=== PATIENT | female | born 1985 | race Caucasian/White ===

== ENCOUNTER → 2020-10-09 14:20 | Outpatient (BNVA) | payer OTHER, SELFPAY | PROVIDERS: PCP Internal Medicine; Referring Provider Internal Medicine; Visit Provider Nurse Practitioner | DX: Z76.89 Persons encountering health services in other specified circumstances (principal) ==

== ENCOUNTER 2021-08-26 11:02 | Outpatient (REF) | payer OTHER, SELFPAY ==
[2021-08-26 13:21] LABS: Appearance Urine CLEAR; Color Urine YELLOW; Glucose Urine UA NEG (NEG); Leukocyte Esterase Urine NEG (NEG); Nitrite Urine NEG (NEG); Specific Gravity - Urine >= 1.030 (1.005-1.025); UACC Culture Trigger NO; Urine Blood TRACE (NEG); Urine Ketones NEG (NEG); Urine Protein NEG (NEG-TRACE)
[2021-08-26 14:36] LABS: Bacteria Urine 1+ /LPF; RBC Urine 0-2 /HPF (0); Squamous Epithelial Cell Urine 2+ /LPF; WBC Urine 0-2 /HPF (0-4)
== END 2021-08-26 11:03 | disposition home or self-care (01) ==
LOC: HO.LAB 11:02
PROVIDERS: PCP Internal Medicine; Visit Provider Internal Medicine
DX: R35.0 Frequency of micturition (principal)
CPT/HCPCS: 81001; 81003

== ENCOUNTER 2021-10-08 19:08 | Outpatient (REF) | payer OTHER, SELFPAY ==
--- NOTE | ~2021-10-08 | MR_ITS ---
MR BRAIN WITHOUT AND WITH CONTRAST CLINICAL INFORMATION: Left hemifacial spasm. COMPARISON: Brain MRI 09/01/2020. Cervical spine MRI 01/09/2020. TECHNIQUE: Multiplanar, multisequence MRI of the brain was obtained before and after the intravenous administration of 6.5 mL Gadavist. FINDINGS: There is no pathologic intracranial enhancement. There is no hydrocephalus, extra-axial surface collection, or herniation. Slightly progressive extensive T2 signal changes throughout the supratentorial white matter inclusive of the anterior temporal pole white matter and external capsules that remains suggestive of CADASIL. Clinical correlation advised. The major flow voids at the skull base are preserved. There is no acute infarct on diffusion-weighted imaging. There is no intracranial hemorrhage on the gradient recalled echo acquisition. The cerebellar tonsils are normally positioned. The craniocervical junction is normal. Osseous marrow signal intensity is homogenous. The visualized soft tissues are unremarkable. Partially imaged disc herniations at C4-C5 and C5-C6 result in similar severe left-sided central canal stenosis and mass effect on the cervical spinal cord when compared to the 01/09/2020 cervical spine MRI. Cord signal changes at both of these levels are better demonstrated on the prior cervical spine MRI. MR/MR head/brain wo/w con IMPRESSION: - Given the history of hemifacial spasm, the patient could return for axial FIESTA imaging in order to ensure that there is no vascular loop compression of the facial nerves. There are no enhancing lesions intracranially. - Slightly progressive extensive T2 signal changes throughout the supratentorial white matter inclusive of the anterior temporal pole white matter and external capsules that remains suggestive of CADASIL. Clinical correlation advised. - Partially imaged disc herniations at C4-C5 and C5-C6 result in similar severe left-sided central canal stenosis and mass effect on the cervical spinal cord when compared to the 01/09/2020 cervical spine MRI. Cord signal changes at both of these levels are better demonstrated on the prior cervical spine MRI.
== END 2021-10-08 19:09 | disposition home or self-care (01) ==
LOC: HO.MRI 19:08
PROVIDERS: PCP Internal Medicine; Visit Provider Psychiatry & Neurology Neurology
DX: G35 Multiple sclerosis (principal)
CPT/HCPCS: 70553; A9585

== ENCOUNTER 2021-10-19 03:47 | Emergency (ER) | payer OTHER, SELFPAY ==
--- NOTE | ~2021-10-19 | XR_ITS ---
EXAMINATION: XR ELBOW, LEFT CLINICAL INFORMATION: Pain on flexion at left elbow COMPARISON: None TECHNIQUE: AP, lateral, and oblique views of the left elbow. FINDINGS: Osseous alignment is anatomic. No acute fracture is seen. Spurring is noted at the coronoid process of the ulna. No significant effusion. XR/XR elbow LT min 3V IMPRESSION: No acute findings identified.
[2021-10-19 04:04] VITALS: BP 143/95; PULSE 105; RESP 20; TEMP 37; O2SAT 99; BMI 25.0
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
[2021-10-19 04:59] VITALS: BP 126/77; PULSE 94; RESP 16; O2SAT 99
[2021-10-19] MEDS: Ibuprofen 400 MG TABLET PO (05:01)
[2021-10-19] MEDS: Acetaminophen 325 MG TABLET 975 MG PO (05:02)
== END 2021-10-19 06:03 | disposition home or self-care (01) ==
PROVIDERS: Emergency Provider Student in an Organized Health Care Education/Training Program; PCP Internal Medicine
DX: M25.522 Pain in left elbow (principal); Z72.89 Other problems related to lifestyle; Z63.0 Problems in relationship with spouse or partner
CPT/HCPCS: 73080; 99283; 99284

== ENCOUNTER 2021-10-22 09:43 | Outpatient (REF) | payer OTHER, SELFPAY ==
[2021-10-22 10:52] LABS: Hematocrit 38.6 % (37.0-47.0); Mean Corpuscular HGB Conc 33.7 g/dl (31.0-35.0); Mean Corpuscular Hemoglobin 29.8 pg (27.0-33.0); Mean Corpuscular Volume 88.5 fL (80.0-98.0); Mean Platelet Volume 9.4 fL (9.4-12.3); Platelet Count 270 X10*3/uL (160-400); Red Blood Count 4.36 X10*6/uL (4.20-5.50); Red Cell Distribution Width 12.6 % (11.0-16.0); White Blood Count 6.2 X10*3/uL (4.8-10.8)
[2021-10-22 11:41] LABS: HCG Quantitative < 2 mIU/mL; TSH reflex Free T4 1.18 uIU/mL (0.32-4.0)
[2021-10-22 11:42] LABS: HBsAGNum1 0.22 S/CO (0.00-0.99); HIV AB/AG Nonreactive (Nonreactive); HIV Num 1 0.07 S/CO (0.00-0.99); Hepatitis B Surface Antigen Negative (Negative); ~HepC Num1 1.94 S/CO (0.00-0.79); ~Hepatitis C Antibody Reactive (Nonreactive)
[2021-10-22 13:28] LABS: CT PCR NOT DETECTED (Not Detect.); NG PCR NOT DETECTED (Not Detect.)
[2021-10-23 08:12] LABS: Syphilis Screen Nonreactive (Nonreactive)
[2021-10-23 11:17] LABS: BV Int Neg Control Negative (Negative); BV Int Pos Control Positive (Positive)
== END 2021-10-22 09:44 | disposition home or self-care (01) ==
LOC: HO.LAB 09:43
PROVIDERS: PCP Internal Medicine; Visit Provider Obstetrics & Gynecology
DX: Z30.432 Encounter for removal of intrauterine contraceptive device (principal); T83.32XA Displacement of intrauterine contraceptive device, initial encounter; N93.9 Abnormal uterine and vaginal bleeding, unspecified; N76.0 Acute vaginitis
CPT/HCPCS: 36415; 58301; 84443; 84702; 85027; 86780; 86803; 87340; 87389; 87480; 87491; 87510; 87591; 87660; 99202

== ENCOUNTER 2021-11-26 10:51 | Outpatient (REF) | payer OTHER, SELFPAY ==
--- NOTE | ~2021-11-26 | US_ITS ---
EXAMINATION: US PELVIS CLINICAL INFORMATION: N93.9 - Abnormal uterine and vaginal bleeding, unspecified. Age 36. LMP one week ago. COMPARISON: Report CT abdomen and pelvis 09/30/2010 TECHNIQUE: Ultrasound of the pelvis is performed using both transabdominal and transvaginal transducers along with Doppler. Transvaginal imaging is performed due to inadequate visualization transabdominally. FINDINGS: Uterus: The uterus is anteverted and measures 8.3 x 5.2 x 6.2 cm. Volume 140 mL. The double wall endometrial thickness is 8 mm. The uterus is smooth in contour and has normal myometrial echogenicity. No visible fibroid. Adnexa: Both ovaries are visualized. There is normal color flow to the adnexa. There is no ovarian torsion. There is no pelvic ascites or fluid collection. Right ovary measures 2.9 x 1.5 x 2.4 cm. Left ovary measures 3.6 x 2.3 x 2.8 cm. There is subtle left intraovarian corpus luteum measuring 1.6 x 1.2 x 1.2 cm. US/US pelvic and transvaginal IMPRESSION: 1. Normal double wall endometrial thickness is 8 mm. No visible fibroid. 2. No adnexal mass or pelvic ascites.
== END 2021-11-26 10:52 | disposition home or self-care (01) ==
LOC: HO.US 10:51
PROVIDERS: PCP Internal Medicine; Visit Provider Obstetrics & Gynecology
DX: Z11.3 Encounter for screening for infections with a predominantly sexual mode of transmission (principal); N93.9 Abnormal uterine and vaginal bleeding, unspecified
CPT/HCPCS: 76830; 76856

== ENCOUNTER → 2021-12-10 09:43 | Outpatient (BNVA) | payer OTHER, SELFPAY | PROVIDERS: PCP Internal Medicine; Visit Provider Obstetrics & Gynecology ==

== ENCOUNTER 2022-02-12 08:41 | Outpatient (REF) | payer OTHER, SELFPAY ==
[2022-02-12 16:23] LABS: CT PCR NOT DETECTED (Not Detect.); NG PCR NOT DETECTED (Not Detect.)
[2022-02-15 09:57] LABS: HPV mRNA E6/E7 Not Detected (Not Detected)
== END 2022-02-12 08:42 | disposition home or self-care (01) ==
LOC: HO.LAB 08:41
PROVIDERS: PCP Internal Medicine; Visit Provider Obstetrics & Gynecology
DX: Z01.419 Encounter for gynecological examination (general) (routine) without abnormal findings (principal); N93.9 Abnormal uterine and vaginal bleeding, unspecified; R76.8 Other specified abnormal immunological findings in serum; Z11.3 Encounter for screening for infections with a predominantly sexual mode of transmission; Z87.891 Personal history of nicotine dependence; Z32.02 Encounter for pregnancy test, result negative
CPT/HCPCS: 58100; 81025; 87491; 87591; 87624; 88142; 88305

== ENCOUNTER → 2022-02-26 15:23 | Outpatient (BNVA) | payer OTHER, SELFPAY | PROVIDERS: Visit Provider Obstetrics & Gynecology | DX: Z13.89 Encounter for screening for other disorder (principal) ==

== ENCOUNTER 2022-05-13 17:11 | Outpatient (REF) | payer OTHER, SELFPAY ==
[2022-05-13 17:45] LABS: HCG Quantitative 634 mIU/mL
== END 2022-05-13 17:12 | disposition home or self-care (01) ==
LOC: HO.LAB 17:11
PROVIDERS: PCP Internal Medicine; Visit Provider Internal Medicine
DX: N91.2 Amenorrhea, unspecified (principal)
CPT/HCPCS: 36415; 84702

== ENCOUNTER 2022-06-01 14:22 | Observation (INO) | payer OTHER, SELFPAY ==
--- NOTE | ~2022-06-01 | CT_ITS ---
EXAMINATION: CT ABDOMEN AND PELVIS WITH CONTRAST CLINICAL INFORMATION: Shortness of breath, prior DVT, abdominal pain COMPARISON: Pelvic ultrasound 11/26/2021 CT abdomen pelvis 09/30/2010 TECHNIQUE: Multidetector volumetric images were obtained from the superior aspect of the liver through the pubic symphysis following administration 85 mL of Omnipaque 350 intravenous contrast. Sagittal and coronal reformatted images were obtained on the technologist's workstation. Oral contrast: No This CT examination was performed using dose optimization techniques as appropriate, variously including the following: *Automated exposure control *Adjustment of mA and/or kV according to patient size (this includes techniques or standardized protocols for targeted exams where dose is matched to indication/reason for exam; i.e. extremities or head) *Use of iterative reconstruction technique DLP: 239 mGy-cm FINDINGS: LUNG BASES: The visualized lung bases are unremarkable. LIVER, GALLBLADDER, AND BILIARY TREE: The liver is normal in size, shape, and attenuation. No focal hepatic lesion or biliary ductal dilatation is present. The gallbladder is unremarkable with no evidence of radiopaque gallstones, gallbladder wall thickening, or obvious pericholecystic inflammatory changes. PANCREAS: Unremarkable. SPLEEN: Unremarkable. ADRENAL GLANDS: Unremarkable. KIDNEYS AND URETERS: The kidneys are normal in size, shape, and attenuation. No hydronephrosis, hydroureter, or calculi seen. No perinephric stranding. BLADDER: Unremarkable. GASTROINTESTINAL TRACT: A moderate stool burden is present in the colon. The small and large bowel are otherwise unremarkable. The appendix is unremarkable. ABDOMINAL WALL: No significant hernia is appreciated. Tiny periumbilical hernia seen containing only fat. LYMPH NODES: No retroperitoneal lymphadenopathy. VASCULAR: Unremarkable. PELVIC VISCERA: An anteverted uterus is present. An abnormal adnexal mass is not seen. There is some inhomogeneity at the fundus which could represent a uterine fibroid none were seen at pelvic ultrasound in November (18:59). Small amount of free fluid is present in the cul-de-sac OSSEOUS STRUCTURES: Unremarkable. CT/CT abdomen pelvis w con IMPRESSION: Cause for abdominal pain has not been found. Incidental findings as described above Fleischner guidelines were followed.
--- NOTE | ~2022-06-01 | US_ITS ---
EXAMINATION: US VENOUS ULTRASOUND WITH DOPPLER LOWER EXTREMITY, BILATERAL CLINICAL INFORMATION: Left leg pain and tightness COMPARISON: None TECHNIQUE: Ultrasound of the deep veins is performed from the hip to the calf with compression sonography and color and pulse Doppler assessment. Spectral analysis with color-flow imaging is performed. FINDINGS: Note is made of prominent bilateral inguinal nodes but no suspicious cystic masses are seen. RIGHT: There is normal venous compression and respiratory variation and augmented flow. The visualized common femoral vein, superficial femoral vein, profunda femoral vein, popliteal vein, and the trifurcation region shows no evidence of deep venous thrombosis. There is no significant popliteal fossa cyst. LEFT: There is normal venous compression and respiratory variation and augmented flow. The visualized common femoral vein, superficial femoral vein, profunda femoral vein, popliteal vein, and the trifurcation region shows no evidence of deep venous thrombosis. There is no significant popliteal fossa cyst. If the patient's symptoms persist, followup ultrasound in 5 days 7 days might be of value to exclude proximal propagation from a non-visualized calf vein. US/US venous duplex LE BI IMPRESSION: No DVT demonstrated in the right and left lower extremity.
--- NOTE | ~2022-06-01 | US_ITS ---
EXAMINATION: US ABDOMEN LIMITED CLINICAL INFORMATION: Severe right upper quadrant pain. COMPARISON: CT scan abdomen and pelvis performed earlier this evening TECHNIQUE: Real-time imaging of the right upper quadrant abdominal viscera. FINDINGS: PANCREAS: Obscured by bowel gas and cannot be evaluated. The pancreas was unremarkable on the CT from earlier today LIVER: The liver is normal in size. The liver contour is normal. Parenchymal echogenicity is normal. No focal hepatic lesion. There is no intrahepatic biliary duct dilatation seen. GALLBLADDER: The gallbladder is filled with stones with a thickened 7 mm wall and some trace pericholecystic fluid. There is a positive Ac's sign present COMMON BILE DUCT: Normal in caliber measuring 0.6 cm in diameter. RIGHT KIDNEY: No hydronephrosis. No renal calculi or focal parenchymal lesions. The kidney measures 10.4 cm in maximum dimension. FREE FLUID: None. US/US abdomen limited IMPRESSION: Findings worrisome for cholecystitis with gallstones, thick walled gallbladder with some trace pericholecystic fluid and a positive Ac's sign.
--- NOTE | ~2022-06-01 | CT_ITS ---
EXAMINATION: CT ANGIOGRAM OF THE CHEST WITH AND WITHOUT CONTRAST (CT PULMONARY ANGIOGRAM FOR PE) CLINICAL INFORMATION: Reason for Exam cp, SOB, prior DVT COMPARISON: None TECHNIQUE: Prior to contrast administration, noncontrast localization images were obtained. Subsequently, multidetector volumetric imaging was performed from the thoracic inlet to below the diaphragms following the administration of 80 mL Omnipaque 350 intravenous contrast. No contrast reaction reported Sagittal, coronal, and MIP oblique sagittal reformatted images were obtained on the CT workstation, uploaded to PACS, and reviewed. This CT examination was performed using dose optimization techniques as appropriate, variously including the following: *Automated exposure control *Adjustment of mA and/or kV according to patient size (this includes techniques or standardized protocols for targeted exams where dose is matched to indication/reason for exam; i.e. extremities or head) *Use of iterative reconstruction technique Total exam dose-length product 239 mGy-cm FINDINGS: QUALITY OF STUDY/CONTRAST BOLUS: Satisfactory. PULMONARY ARTERIES: No central or segmental pulmonary emboli. THORACIC AORTA: No aneurysm or dissection. LUNG: No focal consolidation, nodules or masses. PLEURA: No pleural effusion or pneumothorax. MEDIASTINUM: Normal heart size. No pericardial effusion. No hilar or mediastinal lymphadenopathy. No evidence of septal bowing or right heart strain. CHEST WALL/AXILLA: No axillary or internal mammary lymphadenopathy. OSSEOUS STRUCTURES: No acute or suspicious osseous abnormality. UPPER ABDOMEN: See report of abdominal and pelvic CT same day No reflux of contrast into the hepatic veins to suggest elevated right heart pressures. CT/CT angio chest PE protocol IMPRESSION: No evidence of pulmonary emboli VTE: negative
[2022-06-01 14:29] VITALS: BP 144/88; PULSE 84; RESP 20; TEMP 37.1; O2SAT 99; BMI 28.3
--- NOTE | 2022-06-01 14:35 | ECG_ITS ---
Test Reason : CHEST PAIN Blood Pressure : / mmHG Vent. Rate : 065 BPM Atrial Rate : 065 BPM P-R Int : 142 ms QRS Dur : 084 ms QT Int : 406 ms P-R-T Axes : 045 049 052 degrees QTc Int : 422 ms Normal sinus rhythm Normal ECG When compared with ECG of 05-MAY-2016 12:37, No significant change was found Referred By: Generic ED Physician Electronically Signed By:SATYA DAS
[2022-06-01 14:54] LABS: MANUAL DIFF FLAG NO
[2022-06-01 14:56] LABS: Basophils Percent Auto 0.4 % (0-2); Eosinophils Absolute Auto 0.1 X10*3/uL (0.0-0.4); Eosinophils Percent Auto 1.3 % (0-4); Hematocrit 40.8 % (37.0-47.0); Hemoglobin 13.7 g/dl (12.0-16.0); Imm Gran Abs Auto 0.02 X10*3/uL (0.00-0.03); Imm Gran Pct Auto 0.2 % (0.0-0.4); Lymphocytes Absolute Auto 2.9 X10*3/uL (1.2-4.9); Lymphocytes Percent Auto 27.8 % (20-40); Mean Corpuscular HGB Conc 33.6 g/dl (31.0-35.0); Mean Corpuscular Hemoglobin 30.6 pg (27.0-33.0); Mean Corpuscular Volume 91.1 fL (80.0-98.0); Mean Platelet Volume 9.4 fL (9.4-12.3); Monocytes Absolute Auto 0.7 X10*3/uL (0.1-1.2); Monocytes Percent Auto 6.4 % (2-11); Neutrophils Absolute Auto 6.7 x10*3/uL (2.0-8.3); Neutrophils Percent Auto 63.9 % (45-73); Platelet Count 319 X10*3/uL (160-400); Red Blood Count 4.48 X10*6/uL (4.20-5.50); Red Cell Distribution Width 12.4 % (11.0-16.0); White Blood Count 10.5 X10*3/uL (4.8-10.8)
[2022-06-01 15:21] LABS: Alanine Aminotransferase 19 U/L (0-31); Albumin Level 4.4 g/dL (3.5-5.0); Alkaline Phosphatase 45 U/L (39-117); Anion Gap 12 (12-20); Aspartate Amino Transferase 15 U/L (5-31); Bilirubin Direct 0.2 mg/dL (0.0-0.5); Bilirubin Total 0.4 mg/dL (0.0-1.0); Blood Urea Nitrogen 9 mg/dL (9-16); Calcium 9.1 mg/dL (8.4-10.2); Carbon Dioxide 22 mmol/L (22-29); Chloride 106 mmol/L (96-108); Creatinine Clr Calc Pharmacy 114.6; Estimated Glomerular Filt Rate > 60; Glucose Random 92 mg/dL (60-115); Lipase 4 U/L (8-78); Potassium 4.6 mmol/L (3.3-5.1); Sodium 135 mmol/L (135-145); Total Protein 7.3 g/dL (6.5-8.0)
--- NOTE | 2022-06-01 16:21 | ED_ITS ---
HPI - Chest Pain General Chief Complaint: Abdominal Pain Stated Complaint: back pain, chest pain after surgery Time Seen by Provider: 06/01/22 16:05 Source: patient Mode of arrival: ambulatory Limitations: no limitations History of Present Illness HPI narrative: Patient presents emergency department for evaluation of pain. She reports last night having mid thoracic back pain that is now radiating across her sides into the contents immediately beneath her ribs and up the middle of her chest. She appears in significant discomfort. She is crying, unable to sit still, holding her upper abdominal. She states that she underwent a D&C for ectopic 5 days ago at [facility]. Related Data Home Medications Medication Instructions Recorded Confirmed methadone 10 mg/5 mL oral solution 41 mg PO DAILY 09/04/20 12/07/20 Previous Rx's Medication Instructions Recorded ropinirole 0.5 mg tablet 0.5 mg PO BID #30 tabs 03/05/22 Allergies Allergy/AdvReac Type Severity Reaction Status Date / Time lorazepam [From ATIVAN] Allergy Intermediate hives, Verified 02/12/22 09:07 itchy quetiapine [From SEROQUEL] AdvReac Intermediate RESTLESS Verified 02/12/22 09:07 LEGS trazodone AdvReac Intermediate restless Verified 02/12/22 09:07 leg syndrome Review of Systems Review of Systems: Constitutional: No weight loss. No fever. No chills. No we akness. No fatigue. Eye: No swelling. No redness. ENT: No sore throat. No rhinorrhea. No nasal congestion. No difficulty swallowing. Skin: No rash. No itching. Cardiovascular: Positive chest pain. No palpitations. No pedal edema. Respiratory: Positive shortness of breath. No cough. No sputum production. Gastrointestinal: No anorexia. No nausea. No vomiting. No diarrhea. Positive abdominal pain. No blood in stool. Genitourinary: No burning micturition. No urinary frequency. No incontinence. Neurologic: No headache. No dizziness. No pre-syncope/ syncope. Musculoskeletal: No muscle pain. No back pain. No joint pain. No stiffness. Hematologic: No bleeding. No bruising. Endocrine: No polyuria. No polydipsia. Yes all other systems are reviewed and are negative PMFSH Past Medical History Attestation statement: The following information was validated with the patient. Source: old records reviewed Medical History Bipolar disorder Brain lesion Cervical nerve root impingement Insomnia Polysubstance abuse Tobacco abuse Surgical History Avascular necrosis of bone of left hip Family History Family History Father COPD (chronic obstructive pulmonary disease) Mother Asthma Multiple sclerosis Dementia Other Mental health disorder Substance use disorder Social History Social History Housing: Apartment Alcohol intake: former Patient Tobacco Use Status: Former Tobacco user Tobacco use type: Cigarette Years Smoked: stopped 11/2021 e-Cigarette/Vaping Use: Never Used Second Hand Smoke Exposure: No Substance Use Type: Marijuana Advance Directives: No Advance Directives Information Provided: Yes Current occupational status: employed Cognitive needs: No Hearing needs: No Vision needs: No Physical Exam Vital Signs: Vital Signs: Last Vital Signs Temp 98.7 F 06/01/22 14:29 Pulse 67 06/01/22 16:42 Resp 20 06/01/22 14:29 BP 144/88 H 06/01/22 14:29 Pulse Ox 99 06/01/22 16:42 O2 Del Method 06/01/22 16:42 BMI result Body Mass Index 28.3 Appearance: Alert.?Oriented to person, place and time. No acute distress.?Normal affect. Eyes: Pupils equal, round and reactive to light.? ENT: Pharynx normal.?? Neck: Normal inspection.? Neck supple.?? CVS: Heart sounds normal. Normal heart rate and rhythm.? Pulses normal.?? Respiratory: No respiratory distress.? Lung sounds clear to auscultation bilaterally?? Abdomen: Soft diffuse tenderness on palpation. Normoactive bowel sounds. Skin: Skin warm and dry.? Normal skin color.? Extremities: No lower extremity edema.? No calf ttp? Neuro: Moves all extremities spontaneously. Sensation intact bilaterally. No motor deficits. Ambulates with normal steady gait. Course Course Course Narrative: Patient is a 37-year-old female with history of CP, bipolar disorder, IBS with constipation, polysubstance abuse, the history of DVT, avascular necrosis of the left hip. She is a recently having underwent D and C for ectopic 5 days ago presenting to emergency department for evaluation of try and upper abdominal pain. She is minimally hypertensive otherwise vitals is stable, she appears in significant amount of pain, crying, unable to sit still, guarding her abdomen, minimally tolerant to light palpation. Given her reported history of DVT, and severity of pain will obtain CT angio of the chest to exclude pulmonary embolism, in addition to CT of the abdomen to evaluate for possible perforation after recent procedure or additional intra-abdominal pathology. Patient to receive IV fluids, Zofran IV, and morphine IV. Reevaluation(s) Reevaluation #1: CBC is unremarkable. CMP is unremarkable, lipase normal. CTA of the chest reveals no evidence of pulmonary embolism or acute findings. CT of the abdomen and pelvis without identifiable cause for pain, moderate stool burden within the colon is present. Patient continues to be in a significant amount of pain, trial of GI cocktail in obtain ultrasound of the right upper quadrant to evaluate for obstructive stone. Discussed this case with ED attending Dr. Robles, also evaluated the patient, and agrees with current plan of care. Time: 17:54 Reevaluation #2: Abdominal ultrasound did not with cholecystitis with gallstones, thickened gallbladder wall 7mm and trace pericholecystic fluid, positive Ac sign. Had minimal improvement from GI cocktail, trial Toradol at this time, and if no improvement with NSAID will trial Dilaudid Time: 19:32 Reevaluation #3: Consulted with Surgery economic research analyst Dr. Jain. who accepts patient for admission, requesting hCG, of note patient did just recently undergo D&C for ectopic , her hCG levels may continue to be present at this time. Discussed with patient plan of care and she is agreeable for admission. Time: 20:19 MDM - Chest Pain Medical Records Data Attestation: I reviewed the patient's medical records. Lab Data Attestation: I reviewed the patient's lab results. Result diagrams: 06/01/22 14:50 06/01/22 14:50 Labs: Lab Results 06/01/22 06/01/22 Range/Units 14:50 14:50 WBC 10.5 (4.8-10.8) X10*3/uL RBC 4.48 (4.20-5.50) X10*6/uL Hgb 13.7 (12.0-16.0) g/dl Hct 40.8 (37.0-47.0) % MCV 91.1 (80.0-98.0) fL MCH 30.6 (27.0-33.0) pg MCHC 33.6 (31.0-35.0) g/dl RDW 12.4 (11.0-16.0) % Plt Count 319 (160-400) X10*3/uL MPV 9.4 (9.4-12.3) fL Immature Gran % (Auto) 0.2 (0.0-0.4) % Neut % (Auto) 63.9 (45-73) % Lymph % (Auto) 27.8 (20-40) % Addison % (Auto) 6.4 (2-11) % Eos % (Auto) 1.3 (0-4) % Baso % (Auto) 0.4 (0-2) % Lymph # (Auto) 2.9 (1.2-4.9) X10*3/uL Addison # (Auto) 0.7 (0.1-1.2) X10*3/uL Eos # (Auto) 0.1 (0.0-0.4) X10*3/uL Baso # (Auto) 0.0 (0.0-0.2) X10*3/uL Abs Immat Gran (auto) 0.02 (0.00-0.03) X10*3/uL Absolute Neuts (auto) 6.7 (2.0-8.3) x10*3/uL Absolute Nucleated RBC 0.000 (0.0-0.012) X10*3/uL Nucleated RBC % (auto) 0.0 (0.0-0.2) /100WBC Sodium 135 (135-145) mmol/L Potassium 4.6 (3.3-5.1) mmol/L Chloride 106 (96-108) mmol/L Carbon Dioxide 22 (22-29) mmol/L Anion Gap 12 (12-20) BUN 9 (9-16) mg/dL Creatinine 0.69 (0.5-1.4) mg/dL Estim Creat Clear Calc 114.6 Estimated GFR > 60 Random Glucose 92 (60-115) mg/dL Calcium 9.1 (8.4-10.2) mg/dL Total Bilirubin 0.4 (0.0-1.0) mg/dL Direct Bilirubin 0.2 (0.0-0.5) mg/dL AST 15 (5-31) U/L ALT 19 (0-31) U/L Alkaline Phosphatase 45 (39-117) U/L Total Protein 7.3 (6.5-8.0) g/dL Albumin 4.4 (3.5-5.0) g/dL Lipase 4 L (8-78) U/L Ethyl Alcohol < 10 mg/dL Imaging Data CT scan - chest: Radiologist's impression: CT/CT angio chest PE protocol IMPRESSION: No evidence of pulmonary emboli CT scan - abdomen: Radiologist's impression: CT/CT abdomen pelvis w con IMPRESSION: Cause for abdominal pain has not been found. Incidental findings as described above? US - abdomen: Radiologist's impression: US/US abdomen limited IMPRESSION: Findings worrisome for cholecystitis with gallstones, thick walled gallbladder with some trace pericholecystic fluid and a positive Ac's sign. ECG Data ECG #1: Attestation: I personally reviewed and interpreted this ECG as follows: ECG interpretation date: 06/01/22 Prior ECG tracings: available for review Interpretation: Rate: 65 Rhythm:? Normal sinus rhythm Brokaw:? Normal Normal P waves.? Normal KAITY.?? Normal QRS complex.?? ST T wave :??No ST elevation, no ST depression, no T-wave inversion qTC: 422 prior studies:? April 2016 The study has been interpreted contemporaneously by me. Discharge Plan Discharge Clinical Impression: Cholecystitis with cholelithiasis, Biliary colic Patient Disposition: Admitted As Inpatient
[2022-06-01 16:42] VITALS: PULSE 67; O2SAT 99
[2022-06-01] MEDS: Morphine Sulfate 4 MG/ML CARTRIDGE IVPUSH (16:43)
[2022-06-01] MEDS: ondansetron HCL 4 MG/2 ML VIAL IVPUSH (16:43)
[2022-06-01] MEDS: 0.9 % Sodium Chloride 1,000 ML 999 ML IV (16:44)
[2022-06-01] MEDS: iohexoL 350 MG/ML 100 ML INFUS..BTL IV (17:14)
[2022-06-01] MEDS: Magnesium Hydrox/Alum Hydrox 30 ML ORAL.SUSP PO (18:26)
[2022-06-01] MEDS: Lidocaine HCl Viscous 2 % 15 ML SOLUTION MUCOUS MEM (18:26)
[2022-06-01] MEDS: Famotidine/PF 20 MG/2 ML VIAL IVPUSH (18:26)
[2022-06-01 19:23] LABS: Ethanol < 10 mg/dL
[2022-06-01] MEDS: Ketorolac Tromethamine 30 MG/ML VIAL IVPUSH (20:11)
--- NOTE | 2022-06-01 20:14 | P.HPGS_ITS ---
History of Present Illness History of Present Illness Date of Service: 06/02/22 Chief complaint: biliary colic, early cholecystitis Narrative: Lana Morocho is a 37 year old female with biliary colic pain & GB wall thickening on CT & U/S. Her pain is continuing & I was asked to admit for pain management & possible cholecystectomy. The pt notes a D/C was performed roughly a week ago. This morning her pain is progressing in the epigastrium and right upper quadrant. Review of Systems Review of Systems: Yes all other systems are reviewed and are negative Constitutional: Constitutional: Reports as per [facility] Past Medical History Medical History Bipolar disorder Brain lesion Cervical nerve root impingement Insomnia Polysubstance abuse Tobacco abuse Family History Family History Father COPD (chronic obstructive pulmonary disease) Mother Asthma Multiple sclerosis Dementia Other Mental health disorder Substance use disorder Surgical History Surgical History Avascular necrosis of bone of left hip Social History Social History Housing: Apartment Alcohol intake: former Patient Tobacco Use Status: Former Tobacco user Tobacco use type: Cigarette Years Smoked: stopped 11/2021 e-Cigarette/Vaping Use: Never Used Second Hand Smoke Exposure: No Substance Use Type: Marijuana Advance Directives: No Advance Directives Information Provided: Yes Current occupational status: employed Cognitive needs: No Hearing needs: No Vision needs: No Meds Allergies Allergy/AdvReac Type Severity Reaction Status Date / Time lorazepam [From ATIVAN] Allergy Intermediate hives, Verified 02/12/22 09:07 itchy quetiapine [From SEROQUEL] AdvReac Intermediate RESTLESS Verified 02/12/22 09:07 LEGS trazodone AdvReac Intermediate restless Verified 02/12/22 09:07 leg syndrome Active Medications: Current Medications Piperacillin Sod/Tazobactam (Sod 3.375 gm/ Sodium Chloride) 50 mls @ 100 mls/hr IV ONCE ONE Stop: 06/01/22 20:33 Home Medications Medication Instructions Recorded Confirmed Last Taken Type methadone 10 mg/5 mL oral solution 41 mg PO DAILY 09/04/20 12/07/20 Unknown History Physical Exam Vital Signs: Vital Signs: Last Vital Signs Temp 98.7 F 06/01/22 14:29 Pulse 67 06/01/22 16:42 Resp 20 06/01/22 14:29 BP 144/88 H 06/01/22 14:29 Pulse Ox 99 06/01/22 16:42 O2 Del Method 06/01/22 16:42 BMI result Body Mass Index 28.3 The patient is non-toxic & in good spirits NC/AT, PERRLA, EOMI Mood, affect & judgment all appear appropriate Sclera anicteric conjunctiva pink and moist Oropharynx is clear with no aphthous ulcers, Mallampati class 1, mucous membranes moist Neck is supple with no masses, adenopathy or bruits Thyroid is nontender and free of dominant masses Heart is regular, normal S1-S2 no rubs or murmurs Lungs are clear and equal anteriorly with no audible wheezing, rubs or dullness to percussion No CVA tenderness present Abdomen is overweight with no demonstrable hernias. There is moderate epigastric and right upper quadrant discomfort but no rebound, rigidity, guarding, bruits. Rectal exam is deferred Skin has good turgor and is free of rashes Extremities free of cyanosis clubbing edema Results Results Labs: Short CBC 06/01/22 Range/Units 14:50 WBC 10.5 (4.8-10.8) X10*3/uL Hgb 13.7 (12.0-16.0) g/dl Hct 40.8 (37.0-47.0) % Plt Count 319 (160-400) X10*3/uL BMP 06/01/22 14:50 Sodium 135 Potassium 4.6 Chloride 106 Carbon Dioxide 22 BUN 9 Creatinine 0.69 Calcium 9.1 Liver Function 06/01/22 Range/Units 14:50 Total Bilirubin 0.4 (0.0-1.0) mg/dL Direct Bilirubin 0.2 (0.0-0.5) mg/dL AST 15 (5-31) U/L ALT 19 (0-31) U/L Alkaline Phosphatase 45 (39-117) U/L Albumin 4.4 (3.5-5.0) g/dL Abdomen CT scan report/results: report reviewed and image reviewed CT scan - chest: report reviewed CT scan - pelvis: report reviewed and image reviewed Abdominal ultrasound report/results: report reviewed Additional studies: This morning's white blood cell count is increased to 16 K; repeat LFTs remain normal Assessment and Plan (1) Biliary colic: Status: Acute (2) Cholecystitis with cholelithiasis: Status: Acute (3) Multiple sclerosis: Status: Acute (4) Hepatitis C antibody positive in blood: Status: Acute (5) Bipolar disorder: Qualifiers: Active/Remission status: currently active Current bipolar episode type: mixed Current episode severity: moderate Qualified Code(s): F31.62 - Bipolar disorder, current episode mixed, moderate Status: Acute (6) Polysubstance abuse: Status: Acute Plan See orders NPO, Bowel rest, IVF Analgesics trend labs & exam Per my CT read, ? GB wall thickening. If no clinical improvement, will need OR. 06/02/22 0807 Patient has ongoing symptoms suggestive of acute calculous cholecystitis in the setting of an increase white blood cell count. Plan for surgery today. I explained the symptoms of biliary colic and recommended laparoscopic cholecystectomy. I reviewed the option of continued observation and 2nd opinion which was declined. I also reviewed the inherent risks to surgery which include, but are not limited to: Bleeding that could require another operation or blood transfusion, the need for open surgery, the unlikely but possible issue of bile leak that could require an ERCP, the risk of retained common duct stones that could require an ERCP, the risk of common bile duct injury which would require transfer to a larger institution for another operation. Patient seemed to understand her options, declined a volunteer services director or 2nd opinion and wants to proceed. ? Instructions regarding diet and activity reviewed and apparently understood. The patient is advised to avoid Rich fatty foods postoperatively to avoid GI distress/diarrhea and advised to not lift more than 20 lb for medical reasons to minimize the risk of hernia postoperatively. I recommended that she discuss these restrictions with her employer and that she is not disabled during this time frame but can perform light duty. The patient's questions seemed to be satisfactorily answered. Quality Stroke Does the patient have a stroke diagnosis?: No VTE Prior VTE?: No VTE Risk Level:: Medical - moderate - high VTE Device Contraindication: N/A - Device Ordered VTE Drug Contraindication: N/A - Med Ordered Procedures Date of Service Date of Service: 06/02/22
[2022-06-01] MEDS: Piperacillin Sodium/Tazobactam 3.375 GM in 0.9 % Sodium Chloride 50 ML IV (21:49)
--- NOTE | 2022-06-01 21:52 | PC.NURSE ---
This life underwriter spoke to Dr. Canas to inquire if blood cultures need to drawn prior to IV Zosyn administration-per MD blood cultures do not need to be drawn.
[2022-06-01 22:33] VITALS: BP 103/52; PULSE 68; RESP 16; TEMP 37; O2SAT 99
[2022-06-01 22:45] LABS: Appearance Urine CLEAR; Color Urine YELLOW; Glucose Urine UA NEG (NEG); Leukocyte Esterase Urine NEG (NEG); Nitrite Urine NEG (NEG); PH 5.5 (5.0-8.0); Specific Gravity - Urine 1.015 (1.005-1.025); UACC Culture Trigger NO; Urine Blood TRACE (NEG); Urine Ketones 40 MG/DL (NEG); Urine Protein NEG (NEG-TRACE)
[2022-06-01 23:00] LABS: COVID-19 Test Negative (Negative); IDNOW Serial# 08D9AD1C
[2022-06-01 23:04] LABS: Amphetamine Screen Urine Not Detected (Not Detect); Barbiturates, Urine Not Detected (Not Detect); Benzodiazepines Screen Urine Not Detected (Not Detect); Cannabinoid Screen Urine POSITIVE (Not Detect); Cocaine Screen Urine Not Detected (Not Detect); Fentanyl, urine Not Detected (Not Detect); Opiate Screen Urine POSITIVE (Not Detect); Phencyclidine Screen Urine Not Detected (Not Detect)
[2022-06-01 23:08] LABS: Bacteria Urine TRACE /LPF; Squamous Epithelial Cell Urine 3+ /LPF; WBC Urine 0 /HPF (0-4)
[2022-06-02] VITALS (17 sets, daily range): BP systolic 91–125; BP diastolic 40–75; PULSE 58–90; RESP 11–28; TEMP 36.4–37.9; O2SAT 98–100
[2022-06-02] MEDS: HYDROmorphone HCl 0.5 MG/0.5 ML SYRINGE IVPUSH ×4 (00:58→20:25)
[2022-06-02] MEDS: Ketorolac Tromethamine 15 MG/ML VIAL IVPUSH ×4 (03:19→22:34)
[2022-06-02 04:14] LABS: MANUAL DIFF FLAG NO
[2022-06-02 04:15] LABS: Basophils Absolute Auto 0.1 X10*3/uL (0.0-0.2); Basophils Percent Auto 0.3 % (0-2); Eosinophils Absolute Auto 0.1 X10*3/uL (0.0-0.4); Eosinophils Percent Auto 0.4 % (0-4); Hematocrit 35.1 % (37.0-47.0); Hemoglobin 11.8 g/dl (12.0-16.0); Imm Gran Abs Auto 0.07 X10*3/uL (0.00-0.03); Imm Gran Pct Auto 0.4 % (0.0-0.4); Lymphocytes Absolute Auto 3.8 X10*3/uL (1.2-4.9); Lymphocytes Percent Auto 23.6 % (20-40); Mean Corpuscular HGB Conc 33.6 g/dl (31.0-35.0); Mean Corpuscular Hemoglobin 30.6 pg (27.0-33.0); Mean Corpuscular Volume 90.9 fL (80.0-98.0); Mean Platelet Volume 9.7 fL (9.4-12.3); Monocytes Absolute Auto 0.9 X10*3/uL (0.1-1.2); Monocytes Percent Auto 5.7 % (2-11); Neutrophils Absolute Auto 11.3 x10*3/uL (2.0-8.3); Neutrophils Percent Auto 69.6 % (45-73); Platelet Count 262 X10*3/uL (160-400); Red Blood Count 3.86 X10*6/uL (4.20-5.50); Red Cell Distribution Width 12.5 % (11.0-16.0); White Blood Count 16.2 X10*3/uL (4.8-10.8)
[2022-06-02 04:37] LABS: Alanine Aminotransferase 18 U/L (0-31); Albumin Level 3.6 g/dL (3.5-5.0); Alkaline Phosphatase 38 U/L (39-117); Anion Gap 11 (12-20); Aspartate Amino Transferase 14 U/L (5-31); Bilirubin Total 0.4 mg/dL (0.0-1.0); Blood Urea Nitrogen 9 mg/dL (9-16); Carbon Dioxide 20 mmol/L (22-29); Chloride 108 mmol/L (96-108); Creatinine Clr Calc Pharmacy 119.8; Estimated Glomerular Filt Rate > 60; Glucose Random 79 mg/dL (60-115); Potassium 3.9 mmol/L (3.3-5.1); Sodium 135 mmol/L (135-145); Total Protein 5.7 g/dL (6.5-8.0)
--- NOTE | 2022-06-02 08:10 | HE.PHANOTE ---
RE METHADONE PT RECEIVED TAKE HOME BOTTLES FROM 05/26-06/08. Dose is 50mg. Pt uses clinic in [facility]; [phone]
--- NOTE | 2022-06-02 08:48 | P.OP_ITS ---
Operative Note Operative Note Date of Service: 06/02/22 Narrative: Preop diagnosis: [acute calculus cholecystitis] Postop diagnosis: [same & hydrops of the GB] Procedure: [lap helen] Surgeon: Giovanni Canas MD Assist: [none] Anesthesia: [GET] Estimated blood loss: [10 cc] Specimen: [GB & contents; Hydrops for Gram stain & culture] Intraoperative findings: [Hydrops of the gallbladder requiring decompression; the cystic duct was approximately 6 mm in diameter but only had a 3 mm lumen due to edema. The cystic artery was 3-4 mm in its usual location. Critical view of safety demonstrated. Edematous interface between the gallbladder and liver secondary to early acute calculous cholecystitis and hydrops was noted] Indications: [The patient is a 37-year-old woman who is roughly 1 week out from a D&C that developed bandlike colicky epigastric and right upper quadrant pain. The degree was so severe, she was evaluated for a PE with the CTA. Ultrasound confirmed cholelithiasis with gallbladder wall thickening and the common duct is noted to be 6mm without any obvious intrahepatic ductal dilation. LFTs on presentation and the day after admission remained normal. I reviewed options with the patient including continued observation, cholecystectomy or transfer to a larger institution. I also reviewed the inherent risks of surgery which include, but are not limited to: Bleeding, infection, need for open surgery, bile leak, retained common duct stones that could require an ERCP or common bile duct injury that could require transfer to a larger center. The patient seemed understand her options, had her questions answered and asked me to proceed. The patient was also noted to have a positive urine test. She noted that she had an unwanted from a migrated IUD and had undergone a D&C on 05/27/2022. She stated that she was told the procedure was complete and noted a desire that the be terminated. Given the progressive symptoms and white count, the immediate gallbladder pathology that was involving needed to be addressed. The patient declined options for transfer a 2nd opinion] Procedure: [The patient was identified in preoperative holding and again in the operating room and placed supine on the table. The patient voided bladder special population paraprofessional, sequential compression stockings were in place and antibiotics per protocol were given. The patient was induced in general endotracheal anesthesia administered with excellent effect. An appropriate time-out was performed. A footboard was utilized. The patient's abdomen was widely prepped and draped in the usual manner for surgery using chlorhexidine. Preemptive local was used at all trocar insertion sites. At the supraumbilical location after infiltrating local, a stab incision was made and placed a Veress needle without difficulty. An appropriate drop test was performed and a pneumoperitoneum of 15 mmHg was obtained using carbon dioxide. Opening pressure was 4mm Hg. Next, the needle was withdrawn and a 5 mm/30 degree laparoscoped over Optiview trocar was used to access the abdomen without incident. Upon examining the abdomen, there was no evidence of injury from the Veress needle or trocar. Next, 5 mm trocars were placed in the epigastric, subcostal and right anterior axillary line just above the line of the umbilicus. Under direct laparoscopic vision, the 5 mm umbilical port was upsized to a 12 mm. The patient was then positioned in reverse Trendelenburg position and banked left. The gallbladder was clearly identified and I attempted to grasp it by its fundus, however, it was tense and edematous with an apparent hydrops. A cyst aspirated air and 60 cc syringe was used to remove approximately 60 cc of slightly bile tinged mucus that was sent for Gram stain and culture. This decompressed the gallbladder enough so that it was grasped and retracted cranially & anteriorly, then dissection began lateral in the cystic triangle. The cystic duct was identified at its junction on the gallbladder and dissection began laterally, then circumferentially dissected using the [place] dissector and hook. The cystic artery was then carefully identified and circumferentially dissected. Once dissection of both structures was complete and the critical view of safety demonstrated, the duct and artery were double clipped proximally and once distally and sharply divided. Electrocautery was used to remove the gallbladder from its fossa on the liver. Liver bed was inspected for hemostasis and the clips were noted to be on the respective structures. The gallbladder was placed in an Endo-Catch bag and delivered through the umbilicus under direct laparoscopic vision. The abdomen was again inspected with the laparoscoped and a abdomen deflated to assess for hemostasis. The patient was returned to neutral position, the abdomen deflated and the fascia of the supraumbilical incision closed with interrupted Vicryl sutures. Skin was closed with 4-0 Monocryl subcuticular sutures. Mastisol and Steri-Strips were applied followed by Band-Aids. The patient tolerated the procedure well and was extubated recovered in stable condition. All sponge instrument counts were correct. At the patient's request I called [facility] at [phone] and apprise them of the operation and post-op plan. His questions seemed to be satisfactorily answered.]
[2022-06-02 09:21] LABS: UPreg QC Valid YES; Urine Pregnancy POSITIVE (NEGATIVE)
--- NOTE | 2022-06-02 12:26 | HO.ANESPROP2 ---
HPI - Anesthesia Eval Consult details Narrative: Acute cholecystitis PMFSH Active Problems Active Problems: All Active Problems (Updated 06/01/22 @ 19:35 by Alysha Danielle CNP) Cholecystitis with cholelithiasis (Acute) Biliary colic (Acute) Amenorrhea (Acute) Well woman exam (Acute) Restless leg syndrome (Acute) Multiple sclerosis (Acute) Hepatitis C antibody positive in blood (Acute) Vaginitis (Acute) Screen for STD (sexually transmitted disease) (Acute) Encounter for IUD removal (Acute) IUD migration (Acute) Abnormal uterine bleeding (AUB) (Acute) Bipolar disorder (Acute) Irritable bowel syndrome with constipation (Acute) Abdominal bloating (Acute) Lower abdominal pain (Acute) Cervical cancer screening (Acute) Insomnia (Acute) Polysubstance abuse (Acute) Brain lesion (Acute) Cervical nerve root impingement (Acute) Tobacco abuse (Acute) Past Medical History Medical History Bipolar disorder Brain lesion Cervical nerve root impingement Insomnia Polysubstance abuse Tobacco abuse Family History Family History Father COPD (chronic obstructive pulmonary disease) Mother Asthma Multiple sclerosis Dementia Other Mental health disorder Substance use disorder Family history of problems with anesthesia: No Surgical History Surgical History Avascular necrosis of bone of left hip History of Problems with Anesthesia: No Social History Social History Housing: Apartment Alcohol intake: former Patient Tobacco Use Status: Former Tobacco user Tobacco use type: Cigarette Years Smoked: stopped 11/2021 e-Cigarette/Vaping Use: Never Used Second Hand Smoke Exposure: No Substance Use Type: Marijuana Advance Directives: No Advance Directives Information Provided: Yes Current occupational status: employed Cognitive needs: No Hearing needs: No Vision needs: No Meds Allergies Allergy/AdvReac Type Severity Reaction Status Date / Time lorazepam [From ATIVAN] Allergy Intermediate hives, Verified 02/12/22 09:07 itchy quetiapine [From SEROQUEL] AdvReac Intermediate RESTLESS Verified 02/12/22 09:07 LEGS trazodone AdvReac Intermediate restless Verified 02/12/22 09:07 leg syndrome Active Medications: Current Medications Acetaminophen (Acetaminophen 325 Mg Tablet) 650 mg PO Q6H PRN PRN Reason: Pain, Mild (Pain Scale 1-3) Hydromorphone HCl (Hydromorphone Hcl 0.5 Mg/0.5 Ml Syringe) 0.5 mg IVPUSH Q4H PRN; Protocol PRN Reason: Pain, Severe (Pain Scale 7-10) Last Admin: 06/02/22 08:04 Dose: 0.5 mg Potassium Chloride/Sodium Chloride () 20 meq in 1,000 mls @ 100 mls/hr IVCONT .Q10H CHERI Last Infusion: 06/02/22 09:20 Dose: Infused Ketorolac Tromethamine (Ketorolac Tromethamine 15 Mg/Ml Vial) 15 mg IVPUSH Q6H PRN PRN Reason: Pain, Mild (Pain Scale 1-3) Last Admin: 06/02/22 09:21 Dose: 15 mg Pharmacy Consult (Consult Rx Perform Med Rec) 1 each MISCELLANE ONCE PRN PRN Reason: Consult order Home Medications Medication Instructions Recorded Confirmed Last Taken Type methadone 10 mg/5 mL oral solution 50 mg PO DAILY 09/04/20 06/02/22 06/01/22 History Exam Exam Date and Time: June 02, 2022 1226 Height,Weight and Vital Signs: Height 5 ft 5 in Weight 77.111 kg Last Vital Signs Temp 99.0 F 06/02/22 04:15 Pulse 68 06/02/22 08:07 Resp 20 06/02/22 08:07 BP 125/69 06/02/22 08:07 Pulse Ox 99 06/02/22 04:15 O2 Del Method 06/02/22 04:15 Pertinent Lab Results Pertinent Lab Results: Laboratory Tests 06/01/22 06/01/22 06/01/22 14:50 14:50 22:30 WBC 10.5 RBC 4.48 Hgb 13.7 Hct 40.8 MCV 91.1 MCH 30.6 MCHC 33.6 RDW 12.4 Plt Count 319 MPV 9.4 Immature Gran % (Auto) 0.2 Neut % (Auto) 63.9 Lymph % (Auto) 27.8 Campbell % (Auto) 6.4 Eos % (Auto) 1.3 Baso % (Auto) 0.4 Lymph # (Auto) 2.9 Campbell # (Auto) 0.7 Eos # (Auto) 0.1 Baso # (Auto) 0.0 Abs Immat Gran (auto) 0.02 Absolute Neuts (auto) 6.7 Absolute Nucleated RBC 0.000 Nucleated RBC % (auto) 0.0 Sodium 135 Potassium 4.6 Chloride 106 Carbon Dioxide 22 Anion Gap 12 BUN 9 Creatinine 0.69 Estim Creat Clear Calc 114.6 Estimated GFR > 60 Random Glucose 92 Calcium 9.1 Total Bilirubin 0.4 Direct Bilirubin 0.2 AST 15 ALT 19 Alkaline Phosphatase 45 Total Protein 7.3 Albumin 4.4 Lipase 4 L Urine Color Urine Appearance Urine pH Ur Specific [place] Urine Protein Urine Glucose (UA) Urine Ketones Urine Blood Urine Nitrite Ur Leukocyte Esterase Urine RBC Urine WBC Ur Squamous Epith Cells Urine Bacteria Urine Test Urine Opiates Screen Urine Fentanyl Screen Ur Barbiturates Screen Ur Phencyclidine Scrn Ur Amphetamines Screen U Benzodiazepines Scrn Urine Cocaine Screen U Marijuana (THC) Screen Ethyl Alcohol < 10 COVID-19 (NOE) Negative COVID-19 Clin Com See Note 06/01/22 06/01/22 06/02/22 22:30 22:30 03:59 WBC 16.2 H RBC 3.86 L Hgb 11.8 L Hct 35.1 L MCV 90.9 MCH 30.6 MCHC 33.6 RDW 12.5 Plt Count 262 MPV 9.7 Immature Gran % (Auto) 0.4 Neut % (Auto) 69.6 Lymph % (Auto) 23.6 Campbell % (Auto) 5.7 Eos % (Auto) 0.4 Baso % (Auto) 0.3 Lymph # (Auto) 3.8 Campbell # (Auto) 0.9 Eos # (Auto) 0.1 Baso # (Auto) 0.1 Abs Immat Gran (auto) 0.07 H Absolute Neuts (auto) 11.3 H Absolute Nucleated RBC 0.000 Nucleated RBC % (auto) 0.0 Sodium Potassium Chloride Carbon Dioxide Anion Gap BUN Creatinine Estim Creat Clear Calc Estimated GFR Random Glucose Calcium Total Bilirubin Direct Bilirubin AST ALT Alkaline Phosphatase Total Protein Albumin Lipase Urine Color YELLOW Urine Appearance CLEAR Urine pH 5.5 Ur Specific [place] 1.015 Urine Protein NEG Urine Glucose (UA) NEG Urine Ketones 40 Urine Blood TRACE Urine Nitrite NEG Ur Leukocyte Esterase NEG Urine RBC 1-4 Urine WBC 0 Ur Squamous Epith Cells 3+ Urine Bacteria TRACE Urine Test Urine Opiates Screen POSITIVE H Urine Fentanyl Screen Not Detected Ur Barbiturates Screen Not Detected Ur Phencyclidine Scrn Not Detected Ur Amphetamines Screen Not Detected U Benzodiazepines Scrn Not Detected Urine Cocaine Screen Not Detected U Marijuana (THC) Screen POSITIVE H Ethyl Alcohol COVID-19 (NOE) COVID-19 Clin Com 06/02/22 06/02/22 03:59 09:11 WBC RBC Hgb Hct MCV MCH MCHC RDW Plt Count MPV Immature Gran % (Auto) Neut % (Auto) Lymph % (Auto) [place] % (Auto) Eos % (Auto) Baso % (Auto) Lymph # (Auto) Campbell # (Auto) Eos # (Auto) Baso # (Auto) Abs Immat Gran (auto) Absolute Neuts (auto) Absolute Nucleated RBC Nucleated RBC % (auto) Sodium 135 Potassium 3.9 Chloride 108 Carbon Dioxide 20 L Anion Gap 11 L BUN 9 Creatinine 0.66 Estim Creat Clear Calc 119.8 Estimated GFR > 60 Random Glucose 79 Calcium 8.0 L D Total Bilirubin 0.4 Direct Bilirubin AST 14 ALT 18 Alkaline Phosphatase 38 L Total Protein 5.7 L D Albumin 3.6 Lipase Urine Color Urine Appearance Urine pH Ur Specific [place] Urine Protein Urine Glucose (UA) Urine Ketones Urine Blood Urine Nitrite Ur Leukocyte Esterase Urine RBC Urine WBC Ur Squamous Epith Cells Urine Bacteria Urine Test POSITIVE H Urine Opiates Screen Urine Fentanyl Screen Ur Barbiturates Screen Ur Phencyclidine Scrn Ur Amphetamines Screen U Benzodiazepines Scrn Urine Cocaine Screen U Marijuana (THC) Screen Ethyl Alcohol COVID-19 (NOE) COVID-19 Clin Com Airway Mallampati Class: II TM Dist: >3cm Neck ROM: Full Loose/Missing/Broken Teeth: No (broken teeth upper and lower both sides) Heart: [id number] Lungs: cta b/l Assessment and Plan Assessment Anesthesia Assessment: Anesthesia Plan Discussed and Chart Reviewed Final Anesthetic Review Family History of Problems with Anesthesia: No History of Problems with Anesthesia: No NPO: Yes ASA Class: III and Emergency Final Preanesthetic Review: No Changes in Pt Med Stat, Meds/Allgs Chart Reviewed, Consent Obtained/Reviewed and Anes Risks/Benef Reviewed Patient Risk: Intermediate Procedure Risk: Intermediate Assessment/Block/Sedation in SS: Assess/Block/Sedation-SS Anesthetic Plan Anesthetic Plan: GA and Agree w/ Assess. and Plan Disposition: Standard PACU
--- NOTE | 2022-06-02 12:55 | PC.NURSE ---
Positive HCG urine noted, Dr Ortiz anesthesia & Dr Canas surgeon aware. Per history had D/C w/ suction approx 1 week ago for possible ectopic per patient.
--- NOTE | 2022-06-02 13:03 | PM.EVENT ---
Event Note Date of Service: 06/02/22 Event Note: Patient HCG+ for laparascopic cholecystectomy. [facility] and had a voluntary termination of on 05/27. We dont know if HCG is trending downwards because we dont have quantatative just positive or negative result. Surgeon spoke with the patient about the risks and I also discussed the risks of anesthesia especially teratogenicity since she was at supposed 6 weeks at the time of termination. Patient understands and wants to proceed.
[2022-06-02] MEDS: methADONE HCl 20 MG/2 ML ORAL.CONC 50 MG PO (17:19)
[2022-06-02] MEDS: Docusate Sodium 100 MG CAPSULE 200 MG PO (20:30)
[2022-06-02] MEDS: Piperacillin Sodium/Tazobactam 3.375 GM in 0.9 % Sodium Chloride 50 ML IV (22:30)
[2022-06-03] VITALS (7 sets, daily range): BP systolic 90–114; BP diastolic 50–62; PULSE 56–73; RESP 16–20; TEMP 36.2–36.9; O2SAT 92–100
[2022-06-03] MEDS: Piperacillin Sodium/Tazobactam 3.375 GM in 0.9 % Sodium Chloride 50 ML IV (03:41)
[2022-06-03] MEDS: HYDROmorphone HCl 0.5 MG/0.5 ML SYRINGE IVPUSH ×2 (03:52→23:28)
[2022-06-03 05:44] LABS: MANUAL DIFF FLAG NO
[2022-06-03 05:49] LABS: Basophils Percent Auto 0.2 % (0-2); Eosinophils Percent Auto 0.3 % (0-4); Hematocrit 30.4 % (37.0-47.0); Hemoglobin 10.1 g/dl (12.0-16.0); Imm Gran Abs Auto 0.04 X10*3/uL (0.00-0.03); Imm Gran Pct Auto 0.3 % (0.0-0.4); Lymphocytes Absolute Auto 3.3 X10*3/uL (1.2-4.9); Lymphocytes Percent Auto 26.9 % (20-40); Mean Corpuscular HGB Conc 33.2 g/dl (31.0-35.0); Mean Corpuscular Hemoglobin 30.7 pg (27.0-33.0); Mean Corpuscular Volume 92.4 fL (80.0-98.0); Mean Platelet Volume 10.1 fL (9.4-12.3); Monocytes Absolute Auto 0.8 X10*3/uL (0.1-1.2); Monocytes Percent Auto 6.8 % (2-11); Neutrophils Absolute Auto 8.2 x10*3/uL (2.0-8.3); Neutrophils Percent Auto 65.5 % (45-73); Platelet Count 212 X10*3/uL (160-400); Red Blood Count 3.29 X10*6/uL (4.20-5.50); Red Cell Distribution Width 12.6 % (11.0-16.0); White Blood Count 12.4 X10*3/uL (4.8-10.8)
[2022-06-03 06:33] LABS: Alanine Aminotransferase 37 U/L (0-31); Albumin Level 3.1 g/dL (3.5-5.0); Alkaline Phosphatase 36 U/L (39-117); Anion Gap 7 (12-20); Aspartate Amino Transferase 38 U/L (5-31); Bilirubin Total 0.4 mg/dL (0.0-1.0); Blood Urea Nitrogen 8 mg/dL (9-16); Calcium 7.6 mg/dL (8.4-10.2); Carbon Dioxide 23 mmol/L (22-29); Chloride 110 mmol/L (96-108); Creatinine Clr Calc Pharmacy 125.5; Estimated Glomerular Filt Rate > 60; Glucose Random 88 mg/dL (60-115); Potassium 4.1 mmol/L (3.3-5.1); Sodium 136 mmol/L (135-145)
--- NOTE | 2022-06-03 07:18 | HO.POSTANES ---
Post Anesthesia Evaluation Post Anesthesia Evaluation Vital Signs: Vital Signs Temp Pulse Resp BP Pulse Ox O2 Del Method 06/03/22 03:49 97.5 F 73 18 114/56 L 100 Room Air 06/02/22 23:22 97.6 F 67 18 91/52 L 98 Room Air 06/02/22 19:52 98.7 F 68 18 114/57 L 99 Room Air Anesthesia: General Endotracheal-GETA Mental Status: Awake Pain Control: Satisfactory Nausea/Vomiting: None Hydration: Adequate Anesthesia-Related Issues: No Anes. Related Issues
--- NOTE | 2022-06-03 08:00 | PM.PNGS ---
Subjective Subjective Date of Service: 06/03/22 Patient reports: still having pain Interval history: The patient is seen in follow-up after laparoscopic cholecystectomy for acute calculous cholecystitis with hydrops of the gallbladder she reports expected pain, received her methadone last night, but notes no relief from Dilaudid. Her best pain relief comes from IV Toradol. She denies any nausea or vomiting and is hungry but notes that the pain is almost as severe as when she came to the emergency department. She otherwise denies chest pain, difficulty breathing or shortness of breath. Physical Exam Vital Signs: Vital Signs: Last Vital Signs Temp 97.7 F 06/03/22 07:48 Pulse 62 06/03/22 07:48 Resp 18 06/03/22 07:48 BP 90/53 L 06/03/22 07:48 Pulse Ox 97 06/03/22 07:48 O2 Del Method 06/03/22 07:48 O2 Flow Rate 4 06/02/22 15:14 BMI result Body Mass Index 28.3 On exam, she is anicteric & non-toxic Appropriate abd incisional pain is present, Her pain is upper abd/RUQ; no pain reported into the right or left pelvis Objective Data Active Medications Acetaminophen (Acetaminophen 325 Mg Tablet) 650 mg PO Q6H PRN PRN Reason: Pain, Mild (Pain Scale 1-3) Docusate Sodium (Docusate Sodium 100 Mg Capsule) 200 mg PO BID CHERI Last Admin: 06/02/22 20:30 Dose: 200 mg Documented By: EDMUNDO Fentanyl (Fentanyl Citrate/Pf 100 Mcg/2 Ml Vial) 50 mcg IVPUSH Q5M PRN; Protocol PRN Reason: Pain, Moderate (Pain Scale 4-6 Hydromorphone HCl (Hydromorphone Hcl 0.5 Mg/0.5 Ml Syringe) 0.5 mg IVPUSH Q4H PRN; Protocol PRN Reason: Pain, Severe (Pain Scale 7-10) Last Admin: 06/03/22 03:52 Dose: 0.5 mg Documented By: EDMUNDO Hydromorphone HCl (Hydromorphone Hcl 0.5 Mg/0.5 Ml Syringe) 0.5 mg IVPUSH Q5M PRN; Protocol PRN Reason: Pain, Severe (Pain Scale 7-10) Last Admin: 06/02/22 15:40 Dose: 0.5 mg Documented By: ESTELA Potassium Chloride/Sodium Chloride () 20 meq in 1,000 mls @ 100 mls/hr IVCONT .Q10H [facility] Last Admin: 06/03/22 03:41 Dose: 100 mls/hr Documented By: EDMUNDO Promethazine HCl 6.25 mg/ (Sodium Chloride) 50.25 mls @ 201 mls/hr IV ONCE PRN PRN Reason: Nausea and Vomiting Piperacillin Sod/Tazobactam (Sod 3.375 gm/ Sodium Chloride) 50 mls @ 100 mls/hr IV Q6H [facility] Last Infusion: 06/03/22 04:36 Dose: 0 mls/hr Documented By: EDMUNDO Ketorolac Tromethamine (Ketorolac Tromethamine 15 Mg/Ml Vial) 15 mg IVPUSH Q6H PRN PRN Reason: Pain, Mild (Pain Scale 1-3) Last Admin: 06/02/22 22:34 Dose: 15 mg Documented By: EDMUNDO Methadone HCl (Methadone Hcl 20 Mg/2 Ml Oral.Conc) 50 mg PO DAILY [facility] Last Admin: 06/02/22 17:19 Dose: 50 mg Documented By: RAMSEY Ondansetron HCl (Ondansetron Hcl 4 Mg/2 Ml Vial) 4 mg IVPUSH ONCE PRN PRN Reason: Nausea and Vomiting Oxycodone HCl (Oxycodone Hcl Immed Release 5 Mg Tablet) 10 mg PO ONCE PRN PRN Reason: Pain, Mild (Pain Scale 1-3) Pharmacy Consult (Consult Rx Perform Med Rec) 1 each MISCELLANE ONCE PRN PRN Reason: Consult order Labs CBC & Chem 7: 06/03/22 05:22 06/03/22 05:22 Labs: Laboratory Results - last 24 hr 06/02/22 06/03/22 06/03/22 09:11 05:22 05:22 MCV 92.4 MCH 30.7 MCHC 33.2 RDW 12.6 Plt Count 212 MPV 10.1 Immature Gran % (Auto) 0.3 Neut % (Auto) 65.5 Lymph % (Auto) 26.9 Barton % (Auto) 6.8 Eos % (Auto) 0.3 Baso % (Auto) 0.2 Lymph # (Auto) 3.3 Barton # (Auto) 0.8 Eos # (Auto) 0.0 Baso # (Auto) 0.0 Abs Immat Gran (auto) 0.04 H Absolute Neuts (auto) 8.2 Absolute Nucleated RBC 0.000 Nucleated RBC % (auto) 0.0 Anion Gap 7 L Estim Creat Clear Calc 125.5 Estimated GFR > 60 Random Glucose 88 Calcium 7.6 L Total Bilirubin 0.4 AST 38 H D ALT 37 H Alkaline Phosphatase 36 L Total Protein 5.0 L Albumin 3.1 L Urine Test POSITIVE H No stones seen on Gram stain. Will DC antibiotics Microbiology Microbiology Results: Microbiology 06/02/22 14:01 Gram Stain - Final Gallbladder Fluid no organisms seen Procedures Date of Service Date of Service: 06/03/22 Progress Note: A&P Assessment and plan (1) Cholecystitis with cholelithiasis: Status: Acute (2) Biliary colic: Status: Acute (3) Hepatitis C antibody positive in blood: Status: Acute Plan Advance diet to low-fat. pt requested nutritional consult re: low fat diet. DC antibiotics given no organism seen in the hydrops fluid of the gallbladder. Tentative discharge later today if she tolerates diet and has good analgesia. Will add Ibuprofen 400mg & Tylenol 1000mg PO together Q6hr prn pain. Narcotics will be of limited use re: mathadone & if the pt requires IV toradol, will need to keep her. Time Spent With Patient Time: Total time spent is greater than 50% in coordination of care (as documented) at patient's floor/unit and/or counseling patient: Quality Stroke Does the patient have a stroke diagnosis?: No VTE Prior VTE?: No VTE Risk Level:: Medical - moderate - high VTE Device Contraindication: N/A - Device Ordered VTE Drug Contraindication: N/A - Med Ordered
[2022-06-03] MEDS: methADONE HCl 20 MG/2 ML ORAL.CONC 50 MG PO (08:12)
[2022-06-03] MEDS: Docusate Sodium 100 MG CAPSULE 200 MG PO ×2 (08:12→21:37)
[2022-06-03] MEDS: Ketorolac Tromethamine 15 MG/ML VIAL IVPUSH ×3 (08:20→21:37)
[2022-06-03] MEDS: ondansetron HCL 4 MG/2 ML VIAL IVPUSH ×2 (11:18→14:53)
[2022-06-03] MEDS: Acetaminophen 325 MG TABLET 975 MG PO (12:26)
[2022-06-03] MEDS: Ibuprofen 400 MG TABLET PO (12:27)
[2022-06-04 03:46] VITALS: BP 99/57; PULSE 52; RESP 18; TEMP 36.8; O2SAT 98
[2022-06-04] MEDS: Ketorolac Tromethamine 15 MG/ML VIAL IVPUSH ×2 (05:25→12:23)
[2022-06-04 06:28] LABS: MANUAL DIFF FLAG NO
[2022-06-04 06:33] LABS: Basophils Percent Auto 0.2 % (0-2); Eosinophils Absolute Auto 0.1 X10*3/uL (0.0-0.4); Eosinophils Percent Auto 1.3 % (0-4); Hematocrit 30.8 % (37.0-47.0); Hemoglobin 10.2 g/dl (12.0-16.0); Imm Gran Abs Auto 0.03 X10*3/uL (0.00-0.03); Imm Gran Pct Auto 0.3 % (0.0-0.4); Lymphocytes Absolute Auto 3.4 X10*3/uL (1.2-4.9); Lymphocytes Percent Auto 37.1 % (20-40); Mean Corpuscular HGB Conc 33.1 g/dl (31.0-35.0); Mean Corpuscular Hemoglobin 30.6 pg (27.0-33.0); Mean Corpuscular Volume 92.5 fL (80.0-98.0); Mean Platelet Volume 10.1 fL (9.4-12.3); Monocytes Absolute Auto 0.6 X10*3/uL (0.1-1.2); Monocytes Percent Auto 6.2 % (2-11); Neutrophils Absolute Auto 5.1 x10*3/uL (2.0-8.3); Neutrophils Percent Auto 54.9 % (45-73); Platelet Count 210 X10*3/uL (160-400); Red Blood Count 3.33 X10*6/uL (4.20-5.50); White Blood Count 9.2 X10*3/uL (4.8-10.8)
[2022-06-04 07:12] LABS: Alanine Aminotransferase 59 U/L (0-31); Albumin Level 3.2 g/dL (3.5-5.0); Alkaline Phosphatase 41 U/L (39-117); Anion Gap 8 (12-20); Aspartate Amino Transferase 57 U/L (5-31); Bilirubin Total 0.3 mg/dL (0.0-1.0); Blood Urea Nitrogen 10 mg/dL (9-16); Calcium 7.8 mg/dL (8.4-10.2); Carbon Dioxide 22 mmol/L (22-29); Chloride 113 mmol/L (96-108); Creatinine Clr Calc Pharmacy 119.8; Estimated Glomerular Filt Rate > 60; Glucose Random 85 mg/dL (60-115); Potassium 4.6 mmol/L (3.3-5.1); Sodium 138 mmol/L (135-145)
--- NOTE | 2022-06-04 07:17 | PM.PNGS ---
Subjective Subjective Date of Service: 06/04/22 Interval history: The patient reports her pain and nausea/vomiting have improved, however her left lower extremity is painful and tight. 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 She denies any paresthesias but notes that this is a definite change that has been progressively worse over night. She denies any chest pain, hemoptysis or difficulty breathing. She notes her abdominal pain is improved and she did tolerate some solid food. Physical Exam Vital Signs: Vital Signs: Last Vital Signs Temp 98.2 F 06/04/22 03:46 Pulse 52 06/04/22 03:46 Resp 18 06/04/22 03:46 BP 99/57 L 06/04/22 03:46 Pulse Ox 98 06/04/22 03:46 O2 Del Method 06/04/22 03:46 O2 Flow Rate 4 06/02/22 15:14 BMI result Body Mass Index 28.3 She is nontoxic on exam and anicteric Abdomen has appropriate incisional tenderness and no peritoneal sign No palpable cords are present in either lower extremities, however the patient complains of some distal thigh pain and to squeezing but Homans is negative on both sides Objective Data Active Medications Acetaminophen (Acetaminophen 325 Mg Tablet) 975 mg PO Q6H PRN PRN Reason: Pain, Mild (Pain Scale 1-3) Last Admin: 06/03/22 12:26 Dose: 975 mg Documented By: RAMSEY Docusate Sodium (Docusate Sodium 100 Mg Capsule) 200 mg PO BID [facility] Last Admin: 06/03/22 21:37 Dose: 200 mg Documented By: SUMMER Docusate Sodium (Docusate Sodium 100 Mg Capsule) 200 mg PO BID [facility] Last Admin: 06/03/22 19:23 Dose: Not Given Documented By: SUMMER Non-Admin Reason: Duplicate Order Hydromorphone HCl (Hydromorphone Hcl 0.5 Mg/0.5 Ml Syringe) 0.5 mg IVPUSH Q4H PRN; Protocol PRN Reason: Pain, Severe (Pain Scale 7-10) Last Admin: 06/03/22 23:28 Dose: 0.5 mg Documented By: SUMMER Potassium Chloride/Sodium Chloride () 20 meq in 1,000 mls @ 80 mls/hr IVCONT .[id number] [facility] Last Admin: 06/03/22 23:30 Dose: 80 mls/hr Documented By: SUMMER Ketorolac Tromethamine (Ketorolac Tromethamine 15 Mg/Ml Vial) 15 mg IVPUSH Q6H PRN PRN Reason: Pain, Mild (Pain Scale 1-3) Last Admin: 06/04/22 05:25 Dose: 15 mg Documented By: SUMMER Methadone HCl (Methadone Hcl 20 Mg/2 Ml Oral.Conc) 50 mg PO DAILY [facility] Last Admin: 06/03/22 08:12 Dose: 50 mg Documented By: CASTEDWIN Ondansetron HCl (Ondansetron Hcl 4 Mg/2 Ml Vial) 4 mg IVPUSH Q6H PRN PRN Reason: Nausea and Vomiting Last Admin: 06/03/22 14:53 Dose: 4 mg Documented By: RAMSEY Ondansetron HCl (Ondansetron Odt 4 Mg Tab.Rapdis) 4 mg TRANSLINGU Q6H PRN PRN Reason: Nausea and Vomiting Oxycodone HCl (Oxycodone Hcl Immed Release 5 Mg Tablet) 10 mg PO ONCE PRN PRN Reason: Pain, Mild (Pain Scale 1-3) Pharmacy Consult (Consult Rx Perform Med Rec) 1 each MISCELLANE ONCE PRN PRN Reason: Consult order Labs CBC & Chem 7: 06/04/22 05:55 06/04/22 05:55 Labs: Laboratory Results - last 24 hr 06/04/22 06/04/22 05:55 05:55 MCV 92.5 MCH 30.6 MCHC 33.1 RDW 13.0 Plt Count 210 MPV 10.1 Immature Gran % (Auto) 0.3 Neut % (Auto) 54.9 Lymph % (Auto) 37.1 Armstrong % (Auto) 6.2 Eos % (Auto) 1.3 Baso % (Auto) 0.2 Lymph # (Auto) 3.4 Armstrong # (Auto) 0.6 Eos # (Auto) 0.1 Baso # (Auto) 0.0 Abs Immat Gran (auto) 0.03 Absolute Neuts (auto) 5.1 Absolute Nucleated RBC 0.000 Nucleated RBC % (auto) 0.0 Anion Gap 8 L Estim Creat Clear Calc 119.8 Estimated GFR > 60 Random Glucose 85 Calcium 7.8 L Total Bilirubin 0.3 AST 57 H ALT 59 H Alkaline Phosphatase 41 Total Protein 5.0 L Albumin 3.2 L Imaging Venous US: My impression: Is ordered stat for bilateral lower extremities 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 Anaerobic Culture - Preliminary No growth to date. 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 Check stat venous duplex imaging. Her pain and nausea and vomiting have improved. Will reassess after duplex imaging is performed. ADDENDUM 06/04/22 1102 The patient received Dilaudid for her left thigh pain which is markedly improved. I reviewed her venous duplex imaging which showed no evidence of DVT. She tolerated her diet and is interested in discharge. She will use Tylenol and ibuprofen for pain, continue medicines as previously prescribed and follow up with me next week. Time Spent With Patient Time: Total time spent is greater than 50% in coordination of care (as documented) at patient's floor/unit and/or counseling patient: Quality Stroke Does the patient have a stroke diagnosis?: No VTE Prior VTE?: No VTE Risk Level:: Medical - moderate - high VTE Device Contraindication: N/A - Device Ordered VTE Drug Contraindication: N/A - Med Ordered
[2022-06-04 07:38] VITALS: BP 114/73; PULSE 60; RESP 18; TEMP 36.3; O2SAT 95
[2022-06-04] MEDS: HYDROmorphone HCl 0.5 MG/0.5 ML SYRINGE IVPUSH (09:20)
[2022-06-04] MEDS: methADONE HCl 20 MG/2 ML ORAL.CONC 50 MG PO (09:24)
--- NOTE | 2022-06-04 11:04 | PM.DS ---
DS: Providers Provider Date of Service: 06/04/22 Date of admission: 06/01/22 20:21 Primary care physician: Berry Wooten MD DS: Diagnosis Discharge Diagnosis (1) Cholecystitis with cholelithiasis: Status: Acute (2) Multiple sclerosis: Status: Acute (3) Left thigh pain: Status: Acute DS: Summary Hospital Course Hospital Course: The patient presented with symptoms of biliary colic and possible early cholecystitis. Ultrasound confirmed cholelithiasis with no common bile duct dilation was noted. Overnight, the patient failed to improved and had worsening of abdominal pain, so she was consented for laparoscopic, possible open cholecystectomy. Intraoperatively, she was noted to have a hydrops and extensive liver bed edema. Given pain management issues, she was kept overnight and had difficulty with clear liquids experiencing emesis the afternoon of postop day 1. Her emesis and pain management of her abdomen /resolved by postop day 2, she was tolerating regular low-fat diet and had a consultation with dietary regarding a low fat diet, but noted that her left thigh was extremely painful and tense. Since this is the side that she had a hip replacement for avascular necrosis as a teen and also a recent local superintendent procedure as well as recent surgery, venous duplex imaging was performed which was negative for DVT. The patient required a dose of Dilaudid which helped with muscle spasms she was experiencing and ultimately, she improved and was ready for discharge. The patient will follow-up with me in 1 week. She will stay on a low-fat diet. Smoking cessation was reviewed. She will follow up with her PCP, methadone clinic, local superintendent. Overall condition at the time of discharge is improved. Time Spent with Patient Time attestation: Total time spent providing and/or coordinating discharge services: Discharge coordination time: Greater than 30 minutes Quality: Safe Use of Opioids Does Pt have an Active Cancer Diagnosis on the Problem List?: No Quality: Stroke Does the patient have a stroke diagnosis?: No Physical Exam Vital Signs: Vital Signs: Last Vital Signs Temp 97.4 F 06/04/22 07:38 Pulse 60 06/04/22 07:38 Resp 18 06/04/22 07:38 BP 114/73 06/04/22 07:38 Pulse Ox 95 06/04/22 07:38 O2 Del Method 06/04/22 07:38 O2 Flow Rate 4 06/02/22 15:14 BMI result Body Mass Index 28.3 DS: Data Data Completed and Pending Pending studies at discharge: Pending at discharge 06/02/22 14:46 Surgical [PTH] Routine Labs on day of discharge: Laboratory Results - last 24 hr 06/04/22 06/04/22 05:55 05:55 WBC 9.2 RBC 3.33 L Hgb 10.2 L Hct 30.8 L MCV 92.5 MCH 30.6 MCHC 33.1 RDW 13.0 Plt Count 210 MPV 10.1 Immature Gran % (Auto) 0.3 Neut % (Auto) 54.9 Lymph % (Auto) 37.1 [place] % (Auto) 6.2 Eos % (Auto) 1.3 Baso % (Auto) 0.2 Lymph # (Auto) 3.4 [place] # (Auto) 0.6 Eos # (Auto) 0.1 Baso # (Auto) 0.0 Abs Immat Gran (auto) 0.03 Absolute Neuts (auto) 5.1 Absolute Nucleated RBC 0.000 Nucleated RBC % (auto) 0.0 Sodium 138 Potassium 4.6 Chloride 113 H Carbon Dioxide 22 Anion Gap 8 L BUN 10 Creatinine 0.66 Estim Creat Clear Calc 119.8 Estimated GFR > 60 Random Glucose 85 Calcium 7.8 L Total Bilirubin 0.3 AST 57 H ALT 59 H Alkaline Phosphatase 41 Total Protein 5.0 L Albumin 3.2 L Preliminary micro results at discharge 06/02/22 14:01 Anaerobic Culture - Preliminary Gallbladder Fluid No growth to date. Discharge Plan Discharge Patient Disposition: Home, Self-Care Discharge Diagnosis: Acute calculus cholecystitis with hydrops of gallbladder Referrals: Po,Berry Seymour MD [Primary Care Provider] - 1 Week Giovanni Canas MD [Physician] - 1 Week Discharge Medications: New ondansetron 4 mg Tablet,Disintegrating 4 mg translingual Q6H PRN (Reason: Nausea And Vomiting) Qty: 10 1RF Rx Instructions: 1 tab PO/SL Q6hr prn N/V Continued methadone 10 mg/5 mL solution 50 mg PO DAILY Discharge Orders: Discharge Order (Routine); Ordered 06/04/22 Ordered By: Giovanni Canas Diet: Low fat, low cholesterol Activity on Discharge: No heavy lifting Stand Alone Forms: Patient Portal Discharge page Activity Restrictions/Additional Instructions: You had a laparoscopic cholecystectomy performed by Dr. Canas. It is normal to experience some neck or shoulder pain from the gas used to inflate your abdomen. It is also normal to have pain or discomfort in your abdomen/belly as well as at the trocar sites (small incisions). This discomfort will resolve over the next 1-3 days, however, if it gets progressively worse, if you should develop worsening pain, nausea, vomiting and cannot keep liquids down, chest pain, difficulty breathing or shortness of breath, fevers over 100F please report to the nearest emergency department. Unless otherwise directed by Dr. Canas, you should resume taking your regular medications. You can shower 06/04/22 & go up & down stair, but do not go in a tub, pool or other water for the next 2 weeks to prevent serious infection. As Dr. Canas reviewed, you must not lift more than 20 lb for the next 4 weeks. Strenuous activities can tear out your sutures and cause an incisional hernia that would require another operation. Activities to be avoided include: sports, running, bicycling, yoga, lifting more than 20 lb, digging, gardening, splitting/carrying wood, swimming, hiking uphill, and other activities. If you have questions regarding this specific activity, please check with Dr. Canas. If your incisions become red, swollen, tender or draining pus, please contact Dr. Canas or go to the nearest emergency department. Do not shower or bathe for 48 hours. If there are bandages on your incisions, remove them in 48 hours. Do not allow your bandages to become wet for 48 hours. Do not soak in a tub or swimming pool until your incisions have completely sealed, usually 2 or more weeks. After the dressings are removed in 48 hours, you will notice paper tapes called butterflies/Steri-Strips. These tapes will fall off on their own in 1-2 weeks. You do not need to apply another bandage unless your clothing irritates your incisions. If you need to place another Band-Aid on your incisions, be sure to wait until the Steri strip is dry. Please purchase rdno-uuj-[id number] stool softener known as Colace/docusate, 100 mg. Take 2 tablets with breakfast and the morning and 2 tablets in the evening after dinner until your bowels are moving and urine or longer taking narcotics. Please note that if you are not taking narcotics, the general anesthesia for the procedure can still cause constipation. If you experience diarrhea, stop taking the stool softener medicine. You can take [id number] Tylenol/acetaminophen with asau-efi-lrfdhuk ibuprofen or naproxen for pain unless you have an allergy or medical reason you are not not allowed to take these medications, such as peptic ulcers, taking blood thinners or kidney problems. You should also use ice packs to the operative site to help minimize pain and swelling for the first 3 days, or as needed afterwards. Unless there is a medical reason to avoid these medicines, you should take 2 dell-dxf-fubeuuj Tylenol with two (2) hmma-fjm-nctqudy ibuprofen together, every 6 hours for the first 3 days to help with pain. Remember that the gallbladder helps to to digest fatty foods. If you eat fried foods; rich, creamy sauces; cheese; gravies or other such heavy, greasy foods, you will likely develop gas and bloating and diarrhea. To minimize this risk, eat a high protein, high-fiber, low-fat diet for the next few weeks. Please call the office to schedule a follow-up visit in 7-10 days at [phone], or if you have problems or questions. 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 Canas Assessment: acute calculus cholecystitis, s/p lap helen
[2022-06-04 11:24] VITALS: BP 123/69; PULSE 66; RESP 18; TEMP 36.6; O2SAT 98
--- NOTE | 2022-06-04 11:35 | MHC.CM.PN ---
HOME SELF CARE GARCÍA 06/02/22 PREVIOUSLY COMPLETED
== END 2022-06-04 01:15 | disposition home or self-care (01) ==
LOC: HO.ED 20:21 → HO.EDOVER 20:32 → HO.S3 06-02 13:05
PROVIDERS: Anesthesiology; Nurse Practitioner Family; Admitting Provider Surgery; Emergency Provider Emergency Medicine; PCP Internal Medicine; Visit Provider Surgery
PROC: 0FT44ZZ Resection of Gallbladder, Percutaneous Endoscopic Approach (ICD-10-PCS; CPT 47562; principal; 2022-06-02 13:00)
DX: K80.42 Calculus of bile duct with acute cholecystitis without obstruction (principal); K82.1 Hydrops of gallbladder; M79.652 Pain in left thigh; R06.02 Shortness of breath; D72.829 Elevated white blood cell count, unspecified; M62.838 Other muscle spasm; G35 Multiple sclerosis; R76.8 Other specified abnormal immunological findings in serum; F31.62 Bipolar disorder, current episode mixed, moderate; F19.10 Other psychoactive substance abuse, uncomplicated; K58.1 Irritable bowel syndrome with constipation; F17.210 Nicotine dependence, cigarettes, uncomplicated; F12.90 Cannabis use, unspecified, uncomplicated; F11.20 Opioid dependence, uncomplicated; Z86.718 Personal history of other venous thrombosis and embolism
CPT/HCPCS: 47562; 36415; 71275; 74177; 76705; 80048; 80053; 80076; 80307; 81001; 81003; 81025; 82077; 83690; 85025; 87071; 87073; 87205; 87635; 88304; 92950; 93005; 93970; 96361; 96365; 96375; 99285; J0690; J1100; J1170; J1885; J2250; J2270; J2405; J2543; J2795; J3010; Q9967

== ENCOUNTER 2022-06-26 15:19 | Outpatient (REF) | payer OTHER, SELFPAY ==
[2022-06-27 06:20] LABS: CT PCR NOT DETECTED (Not Detect.); NG PCR NOT DETECTED (Not Detect.)
== END 2022-06-26 15:20 | disposition home or self-care (01) ==
LOC: HO.LAB 15:19
PROVIDERS: Visit Provider Obstetrics & Gynecology
DX: Z30.09 Encounter for other general counseling and advice on contraception (principal)
CPT/HCPCS: 87491; 87591; 99212

== ENCOUNTER → 2025-06-07 13:34 | Outpatient (BNVA) | payer SELFPAY | PROVIDERS: PCP Internal Medicine | DX: R76.11 Nonspecific reaction to tuberculin skin test without active tuberculosis (principal) ==

== ENCOUNTER 2025-06-08 11:01 | Outpatient (AMB) | payer OTHER, SELFPAY ==
--- NOTE | 2025-06-08 11:04 | A.OFFPC_ITS ---
Vital Signs 06/08/25 11:05 Height 5 ft 5 in Weight 180 lb BMI 30.0 BP 114/88 Blood Pressure Location Lt brachial Position Sitting Pulse 86 Pulse Source Pulse Oximeter Temp 97.4 F Temp Source Temporal Artery Scan Pulse Oximetry (%) 97 Intake Visit Reasons: annual exam Group Therapy Counselor Required: No Accompanied by: Self / Same As Patient Allergies lorazepam (From ATIVAN) Allergy (Intermediate, Verified 06/08/25 11:17) hives, itchy gabapentin Adverse Reaction (Intermediate, Verified 06/08/25 11:17) feels weird quetiapine (From SEROQUEL) Adverse Reaction (Intermediate, Verified 06/08/25 11:17) RESTLESS LEGS trazodone Adverse Reaction (Intermediate, Verified 06/08/25 11:17) restless leg syndrome Medication List - Last Reconciled 06/08/25 by Alejandra Costello PA-C methadone 22 mg PO DAILY Tobacco use date assessed: 02/03/22 Dental Screening Dental Screen Date: 06/08/25 Did you have a dental visit in the last 12 months?: Yes Did you have a dental problem in the last 6 months where you did not have access to dental care?: No Was dental information given to patient?: Patient has dentist HPI annual exam HPI Details 40-year-old female with past medical his tory of multiple sclerosis, bipolar disorder, IBS, polysubstance abuse, tobacco abuse last seen 09/2022 coming in for annual exam. 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 Undergoing methadone maintenance therapy, currently on a dose of 22 mg, and has been on methadone for over 10 years to manage a history of substance use disorder. She has been without substances for the last 14 years. History of avascular necrosis and underwent a hip replacement at 13 y/o, which significantly improved her mobility. Experienced a smoking relapse last month, smoking occasionally, and is considering nicotine replacement therapy. Reports insomnia, with difficulty falling asleep and the ability to sleep for extended periods once asleep, attributing it to stress. Has gained weight, currently weighing 180 lbs, and attributes this to inconsistent eating habits and stress. pap smear: overdue with patient care associate - advised call to make appt mammogram: referral was placed [facility] Medical History Irritable bowel syndrome with constipation Hepatitis C antibody positive in blood Biliary colic Bipolar disorder Insomnia Polysubstance abuse Brain lesion Cervical nerve root impingement Tobacco abuse Surgical History Hx laparoscopic cholecystectomy Avascular necrosis of bone of left hip Family History Father COPD (chronic obstructive pulmonary disease) Mother Asthma Multiple sclerosis Dementia Other Mental health disorder Substance use disorder Social History Housing: Apartment Alcohol intake: current Alcohol intake frequency: holidays/special occasions only Comment: previously medicated with ketorolac and dilaudid Patient Tobacco Use Status: Current someday Tobacco user Tobacco use type: Cigarette Years Smoked: Restarted 04/2025 e-Cigarette/Vaping Use: Never Used Second Hand Smoke Exposure: Yes Substance Use Type: Marijuana service: No Current occupational status: employed Cognitive needs: No Hearing needs: No Vision needs: No Female Reproductive History Menstrual Age of Menarche: 12 control method: permanent sterilization (partner) Permanent Sterilization: Vasectomy Questionnaire PHQ-9 Over the last 2 weeks, how often have you been bothered by any of the following problems? 1. Little interest or pleasure in doing things: not at all 2. Feeling down, depressed, or hopeless: not at all 3. Trouble falling or staying asleep, or sleeping too much: not at all 4. Feeling tired or having little energy: not at all 5. Poor appetite or overeating: not at all 6. Feeling bad about yourself - or that you are a failure or have let yourself or your family down: not at all 7. Trouble concentrating on things, such as reading the newspaper or watching television: not at all 8. Moving or speaking so slowly that other people could have noticed. Or the opposite - being so fidgety or restless that you have been moving around a lot more than usual: not at all 9. Thoughts that you would be better off or of hurting yourself in some way: not at all Total score: 0 Depression Screening Interpretation: Negative Depression Screening Done: Yes 00448 - PHQ-9 Billing: Yes Source: Developed by Drs. Shaquille Luna, Leena Melgoza, Paul Adam and colleagues, with an educational vu from [employer]. Thrive Questionnaire Date Thrive assessed: 06/08/25 BECKI-7 AMB Questionnaire BECKI-7 Date BECKI - 7 assessed: 12/18/21 Source: Developed by Drs. Shaquille Luna, Leena Melgoza, Paul Adam and colleagues, with an educational vu from [employer]. Review of Systems Const Denies body aches, Denies fatigue, Denies fever(s), Denies frequent falls, Denies headache(s) and Denies weakness Eyes Details: eye strain with reading Reports no additional complaints and Denies change in vision ENT Denies dysphagia, Denies dizziness, Denies facial pain, Denies headache(s), Denies nasal congestion and Denies odynophagia Card Denies chest pain, Denies syncope, Denies irregular heart rhythm, Denies leg edema, Denies lightheadedness and Denies dyspnea Resp Denies cough and Denies dyspnea GI Denies abdominal pain, Denies constipation, Denies dysphagia, Denies dyspepsia, Denies diarrhea, Denies nausea, Denies odynophagia and Denies vomiting Denies urinary frequency, Denies dysuria, Denies urinary hesitancy and Denies urinary urgency Musc Denies back pain and Denies myalgias Skin/Breast Reports system reviewed and no additional complaints, except as documented Neuro Denies dizziness, Denies syncope, Denies frequent falls, Denies headache(s) and Denies weakness Psych Reports no additional complaints Endo Denies fatigue Physical exam (Primary Care) Vital Signs: Last Vital Signs Temp 97.4 F 06/08/25 11:05 Pulse 86 06/08/25 11:05 BP 114/88 06/08/25 11:05 Pulse Ox 97 06/08/25 11:05 BMI result Body Mass Index 30.0 Tobacco/Smoking Status: Tobacco use Status Tobacco use date assessed 02/03/22 06/08/25 11:07 Patient Tobacco Use Status Current someday Tobacco 06/08/25 11:38 Tobacco use type Cigarette 06/08/25 11:07 e-Cigarette/Vaping Use Never Used 06/08/25 11:07 PHQ-9: PHQ-9 Score PHQ-9: Total score 0 06/08/25 12:12 Depression Screening Interpretation: Negative Thrive Assessment: Date of Thrive Assessment Date Thrive assessed 06/08/25 06/08/25 11:07 Const General: cooperative, healthy appearing, comfortable and no acute distress Orientation/consciousness: patient oriented x3 HENMT Head: Yes normocephalic Ears: hearing grossly normal bilaterally, external ears normal, TM's normal bilaterally and EAC's normal General nose exam: Normal external nose present Face and sinus: Yes normal facial exam and Yes sinuses nontender Mouth: Normal oral and palatal mucosa present and tongue normal Throat: Yes posterior oropharynx normal Eyes General: appearance normal, both eyes and all related structures Conjunctivae: conjunctivae normal Pupils: Equal, round and reactive pupils present EOM: EOMs intact bilaterally and No Nystagmus present Neck Neck: Yes normal visual inspection, Yes full ROM and Yes no lymphadenopathy Chest Chest palpation & inspection: normal inspection of the chest Resp Effort & Inspection: normal respiratory effort Auscultation: clear to auscultation bilaterally, no crackles, no rales, no rhonchi, no wheezes and breath sounds present Cardio Rate: regular rate Rhythm: regular rhythm Peripheral pulses: radial pulses present and dorsalis pedis present GI Inspection: Yes normal to inspection and No Abdominal wall edema Palpation (GI): Soft to palpation, not firm and nontender Auscultation: normal bowel sounds Rectal Exam - Female: deferred General: Yes no CVA tenderness Back/Spine/Pelvis Back: no CVA tenderness Skin General skin exam: no rashes or lesions noted Neuro General: patient oriented x3 Cranial nerves: Yes Equal, round and reactive pupils present, Yes Midline tongue present, Yes Ability to bilaterally elevate shoulders present and No Nystagmus present Gait exam (Neuro): Normal gait present Extrem General: Yes normal to inspection, Yes full ROM, No no pedal edema and No edema Psych Speech and movement: Normal speech and movement present Affect: normal affect Insight: Good insight present (Psych) Judgement: Good judgement present (Psych) Immunizations Boostrix Tdap 2.5 Lf unit-8 mcg-5 Lf/0.5 mL intramuscular syringe Performing Provider: Alejandra Costello PA-C [facility] Administered by: GOPAL Cleary on 06/08/25 12:11 Dose Route Admin Location Dispensed Lot Number Expiration Date NDC Pressed Or Blown Glass Worker 0.5 mL IM Left Deltoid 0.5 mL [id number] 09/01/27 [id number] [employer] Total Dispensed Waste 0.5 mL 0 % VIS Given Date VIS Provided VIS Publication Date 06/08/25 Single Vaccine 24 Eligibility Eligibility Date Funding Source Not [facility] Eligible 06/08/25 Private Coding Level of Care Code Est Pt Level 3 (79565) Est Pt Prev Care 40-64y(70381) Diagnoses Annual physical exam Z00.00 Bipolar disorder, current episode mixed, moderate F31.62 Active/Remission status: currently active Current bipolar episode type: mixed Current episode severity: moderate Polysubstance abuse F19.10 Multiple sclerosis G35 Primary insomnia F51.01 Insomnia type: primary Tobacco abuse Z72.0 Obesity (BMI 30.0-34.9) E66.811 Cervical cancer screening Z12.4 Additional Codes PHQ-9 - 79281 - PHQ-9 Billing: Yes ([id number]) Assessment & Plan Assessment & Plan (1) Annual physical exam: Code(s): Z00.00 - Encounter for general adult medical examination without abnormal findings Category: Medical Plan: Patient is overdue for routine screenings referral was placed for mammogram and Pap smear today. She had a updated TDaP today and I did ordered for updated blood work as well. She will follow up in 2 months or sooner as needed. (2) Bipolar disorder: Comment: PTSD, [facility] counselling (05/2025) Code(s): F31.9 - Bipolar disorder, unspecified Category: Medical Qualifiers: Active/Remission status: currently active Current bipolar episode type: mixed Current episode severity: moderate Qualified Code(s): F31.62 - Bipolar disorder, current episode mixed, moderate Plan: Previous diagnosis of bipolar disorder not currently being treated. She does follow with a counselor through [facility] for both mental health and recovery coachi hng. She feels good without medication at this time (3) Polysubstance abuse: Comment: Vicodin and Percocet Code(s): F19.10 - Other psychoactive substance abuse, uncomplicated Category: Medical Plan: Patient has a history of polysubstance abuse is currently using methadone on 22 mg daily. Her ultimate goal is to come off of methadone and she is working slowly with the clinic to reduce her dose (4) Multiple sclerosis: Comment: Dr. Cordoba Code(s): G35 - Multiple sclerosis Category: Medical Plan: Patient has a previous history of multiple sclerosis that was not confirmed with the lumbar puncture. She states she was previously following with Dr. Cordoba for Neurology but decided against going through with the lumbar puncture. She would like to reestablishing with his care and referral was placed today. (5) Insomnia: Code(s): G47.00 - Insomnia, unspecified Category: Medical Qualifiers: Insomnia type: primary Qualified Code(s): F51.01 - Primary insomnia Plan: Patient to continue to use Benadryl as needed for sleep. Would like to avoid the use of medication as much as possible. (6) Tobacco abuse: Code(s): Z72.0 - Tobacco use Category: Medical Plan: Smoking cigarettes and the use of tobacco can be harmful. We discussed the importance of stopping and options to aid in smoking cessation. NRT sent to pharmacy. (7) Obesity (BMI 30.0-34.9): Code(s): E66.811 - Obesity, class 1 Category: Medical Plan: Healthy diet and regular exercise is encouraged. Patient was counseled today on the risks and benefits of GLP-1 injections as well as the dosing schedule. She has no family history or personal history of thyroid disease and no gallbladder disease. Discussed with the patient the potential GI side effects of this medication. Plan to have repeat blood work after one month of therapy to monitor kidney and liver function before increasing the dose of this medication. Follow up in 2 months for a weight check. (8) Cervical cancer screening: Code(s): Z12.4 - Encounter for screening for malignant neoplasm of cervix Category: Medical Plan: Advised to follow with patient care associate for annual exam. Plan The patient will receive titers for MMR, varicella, and hepatitis B to meet school requirements, and a Tdap vaccine was administered during the visit. A referral for a mammogram and gynecological follow-up was provided due to her age and missed appointments. Additionally, a referral to neurology was made to evaluate her eye spasms and family history of multiple sclerosis. Weight management strategies were discussed, including maintaining a consistent eating schedule and considering the use of Ozempic for weight loss. Nicotine replacement therapy was also discussed to aid in smoking cessation. This note was constructed using voice recognition software. While every effort has been made to ensure accuracy and egg gatherer, still areas may have been included sometimes these areas may affect the content or meeting of the given symptoms. Total time spent caring for the patient today was 30 minutes. This includes time spent before the visit reviewing the chart, time spent during the visit, and time spent after the visit and documentation. Patient was informed and verbally consented to the use of an ambient scribe for clinic note documentation during this visit. Orders: Orders Hepatitis B Surface Antigen 06/08/25 Z00.00 - Encounter for general adult medical examination without abnormal findings Complete Blood Count Auto Diff 06/08/25 G35 - Multiple sclerosis, Z00.00 - Encounter for general adult medical examination without abnormal findings Comprehensive Met. Panel 06/08/25 G35 - Multiple sclerosis, Z00.00 - Encounter for general adult medical examination without abnormal findings Vitamin B12 and Folate 06/08/25 G35 - Multiple sclerosis, Z13.21 - Encounter for screening for nutritional disorder Vitamin D 25-OH Total 06/08/25 G35 - Multiple sclerosis, Z00.00 - Encounter for general adult medical examination without abnormal findings Hemoglobin A1c 06/08/25 Z13.1 - Encounter for screening for diabetes mellitus MM tomosynthesis screening BI 06/08/25 Z12.31 - Encounter for screening mammogram for malignant neoplasm of breast MMR IgG Measles Mumps Rubella 06/08/25 Z00.00 - Encounter for general adult medical examination without abnormal findings Varicella IgG Antibody 06/08/25 Z00.00 - Encounter for general adult medical examination without abnormal findings TDaP Immunization 06/08/25 Z23 - Encounter for immunization TSH reflex Free T4 06/08/25 G35 - Multiple sclerosis, Z00.00 - Encounter for general adult medical examination without abnormal findings Free T4 (Free Thyroxine) 06/08/25 G35 - Multiple sclerosis, Z00.00 - Encounter for general adult medical examination without abnormal findings Lipid Panel 06/08/25 Z13.1 - Encounter for screening for diabetes mellitus, Z13.220 - Encounter for screening for lipoid disorders Referrals Optometry Referral Z00.00 - Encounter for general adult medical examination without abnormal findings Neurology Referral G35 - Multiple sclerosis, G93.9 - Disorder of brain, unspecified Medications: New nicotine 1 patch transdermal DAILY 28 ea 0RF tirzepatide (Mounjaro) for 4 weeks 2.5 mg (0.5 mL) subcut QWEEK 2 mL 0RF
[2025-06-08 11:05] VITALS: BP 114/88; PULSE 86; TEMP 36.3; O2SAT 97
--- OUTSIDE RECORDS SUMMARY | 2025-06-08 11:51 | XMS_ITS | Clinical Summary ---
Author Organization [facility] Address [address] [address] Phone Care Team Providers Care Technical Services Assistant Name Role Phone Berry Wooten MD Primary Care Provider [phone] Allergies No known active allergies Medications No known medications Active Problems No known active problems Social History Tobacco Use Types Packs/Day Years Used Date Smoking Tobacco: Every Day Smokeless Tobacco: Never Alcohol Use Standard Drinks/Week Comments No 0 (1 standard drink = 0.6 oz pur e alcohol) Education Answer Date Recorded Are you interested in more education? Not on aracely e 03/06/2023 Are you concerned about learning? Not on file 03/06/2023 No 03/06/2023 No 03/06/2023 Digital Access Answer Date Recorded No 04/06/2023 No 04/06/2023 No 04/06/2023 Reliable internet access at home? Not on file 04/06/2023 Device with a working camera? Not on file Comments No Sex and Gender Information Value Date Recorded Sex Assigned at Female 10/18/2018 7:46 PM EST Legal Sex Female 10:28 PM EDT Gender Identity Female 10/18/2018 7:46 PM EST Sexual Orientation Straight 10/18/2018 7: 46 PM EST Last Filed Vital Signs Vital Sign Reading Time Taken Comments Blood Pressure 137/85 10/18/2018 7:43 PM EST Pulse 76 10/18/2018 10:37 PM EST Temperature 37.5 C (99.5 F) 10/18/2018 7:43 PM EST Respiratory Rate 18 10/18/2018 10:37 PM EST Oxygen Saturation 100% 10/18/2018 7:43 PM EST Inhaled Oxygen Concentration - - Weight 75.8 kg (167 lb) 10/18/2018 7:43 PM EST Height 165.1 cm (5' 5 ) 10/18/2018 7:43 PM EST Body Mass Index 27.79 10/18/2018 7:43 PM EST Plan of Treatment Not on file Medical Devices Not on file Insurance [facility] ACO [facility] A[facility] [employer] ACO [facility] ACO Care Teams Technical Services Assistant Relationship Specialty Start Date End Date Berry Wooten MD [address] [place] [address] PCP - General 08/25/17 Additional Source Comments The information contained in this document represents components of the legal health record. It is not the complete legal health record.[facility]
== END 2025-06-08 12:16 | disposition home or self-care (01) ==
LOC: HO.HMCH 11:01
PROVIDERS: PCP Internal Medicine
DX: Z23 Encounter for immunization (principal)

== ENCOUNTER 2025-06-08 11:01 | Outpatient (REF) | payer OTHER, SELFPAY ==
[2025-06-08 12:54] LABS: MANUAL DIFF FLAG NO
[2025-06-08 13:32] LABS: Hematocrit 41.4 % (37.0-47.0); Hemoglobin 14.1 g/dl (12.0-16.0); Imm Gran Abs Auto 0.03 X10*3/uL (0.00-0.03); Imm Gran Pct Auto 0.4 % (0.0-0.4); Lymphocytes Absolute Auto 3.0 X10*3/uL (1.2-4.9); Mean Corpuscular HGB Conc 34.1 g/dl (31.0-35.0); Mean Corpuscular Hemoglobin 30.5 pg (27.0-33.0); Mean Corpuscular Volume 89.6 fL (80.0-98.0); NRBC Abs Auto 0.000 X10*3/uL (0.0-0.012); NRBC Pct Auto 0.0 /100WBC (0.0-0.2); Platelet Count 300 X10*3/uL (160-400); Red Blood Count 4.62 X10*6/uL (4.20-5.50); White Blood Count 8.5 X10*3/uL (4.8-10.8)
[2025-06-08 13:47] LABS: Hemoglobin A1C 140.2859 umol/L; Total Hemoglobin (HGBA1C) 3710.9862 umol/L
[2025-06-08 14:04] LABS: Alanine Aminotransferase 33 U/L (0-31); Albumin Level 4.6 g/dL (3.5-5.0); Alkaline Phosphatase 52 U/L (39-117); Anion Gap 10 (12-20); Aspartate Amino Transferase 26 U/L (5-31); Blood Urea Nitrogen 10 mg/dL (9-16); Calcium 8.9 mg/dL (8.4-10.2); Carbon Dioxide 25 mmol/L (22-29); Chloride 106 mmol/L (96-108); Cholesterol 223 mg/dL (<200); Estimated Glomerular Filt Rate > 60; HDL Cholesterol 45 mg/dL (>40); Potassium 4.3 mmol/L (3.3-5.1); Sodium 137 mmol/L (135-145); Total Protein 7.3 g/dL (6.5-8.0); Triglycerides 141 mg/dL (<150)
[2025-06-08 14:10] LABS: Free T4 (Free Thyroxine) 0.99 ng/dL (0.71-1.85)
[2025-06-08 14:26] LABS: Folate 9.2 ng/mL (> or = 4.0); Vitamin B12 340 pg/mL (200-900)
[2025-06-09 03:40] LABS: HBsAGNum1 0.37 S/CO (0.00-0.99); Hepatitis B Surface Antigen Negative (Negative)
[2025-06-09 10:58] LABS: Rubeola IgG (Measles) <13.50 AU/mL
== END 2025-06-08 11:02 | disposition home or self-care (01) ==
LOC: HO.LAB 11:01
PROVIDERS: PCP Internal Medicine
DX: Z00.00 Encounter for general adult medical examination without abnormal findings (principal); Z23 Encounter for immunization; F31.62 Bipolar disorder, current episode mixed, moderate; F11.20 Opioid dependence, uncomplicated; G35 Multiple sclerosis; F51.01 Primary insomnia; E66.811 Obesity, class 1; Z68.30 Body mass index [BMI] 30.0-30.9, adult; Z72.0 Tobacco use; Z13.31 Encounter for screening for depression; Z13.21 Encounter for screening for nutritional disorder; Z13.1 Encounter for screening for diabetes mellitus; Z13.220 Encounter for screening for lipoid disorders
CPT/HCPCS: 36415; 80053; 80061; 82306; 82607; 82746; 83036; 84439; 84443; 85025; 86735; 86762; 86765; 86787; 87340; 90471; 90715; 96127; 99212; 99396

== ENCOUNTER 2025-06-09 14:15 | Outpatient (AMB) | payer OTHER, SELFPAY ==
--- OUTSIDE RECORDS SUMMARY | 2025-06-09 14:17 | XMS_ITS | Clinical Summary ---
Author Organization [facility] Address [address] [address] Phone Care Team Providers Care Rn Hospice Name Role Phone Berry Wooten MD Primary Care Provider [phone] Allergies No known active allergies Medications No [...] file Medical Devices Not on file Insurance [facility] ACO [facility] ACO [facility] ACO [facility] [employer] ACO [facility] ACO Care Teams Rn Hospice Relationship Specialty Start Date End Date Berry Wooten MD [address] [place] [address] PCP - General 08/25/17 Additional Source Comments The information contained in this document represents components of the legal health record. It is not the complete legal health record.[facility]
--- NOTE | 2025-06-09 14:25 | AM.OFFVISNUR ---
Intake Visit Reasons: vaccine Allergies lorazepam (From ATIVAN) Allergy (Intermediate, Verified 06/08/25 11:17) hives, itchy gabapentin Adverse Reaction (Intermediate, Verified 06/08/25 11:17) feels weird quetiapine (From SEROQUEL) Adverse Reaction (Intermediate, Verified 06/08/25 11:17) RESTLESS LEGS trazodone Adverse Reaction (Intermediate, Verified 06/08/25 11:17) restless leg syndrome Immunizations M-M-R II (PF) 1,000-12,500 TCID50/0.5 mL subcutaneous solution Performing Provider: Berry Wooten MD [facility] [place] [facility] Administered by: Elin Estrada LPN on 06/09/25 14:25 Dose Route Admin Location Dispensed Lot Number Expiration Date [facility] Bookmaker Map 0.5 mL subcut Left Arm 0.5 mL [id number] 02/17/26 6525-7653-21 [employer] Total Dispensed Waste 0.5 mL 0 % VIS Given Date VIS Provided VIS Publication Date 06/09/25 Single Vaccine 21 Eligibility Eligibility Date Funding Source Not [facility] Eligible 06/09/25 Private Assessment & Plan Assessment & Plan Orders: Orders MMR Immunization Today Z23 - Encounter for immunization Coding
== END 2025-06-09 14:26 | disposition home or self-care (01) ==
LOC: HO.HMCH 14:15
PROVIDERS: PCP Internal Medicine; Visit Provider Internal Medicine
DX: Z23 Encounter for immunization (principal)

== ENCOUNTER → 2025-06-09 14:15 | Outpatient (BNVA) | payer OTHER, SELFPAY | PROVIDERS: PCP Internal Medicine; Visit Provider Internal Medicine | DX: Z23 Encounter for immunization (principal) | CPT/HCPCS: 90471; 90707 ==

== ENCOUNTER 2025-06-12 13:48 | Outpatient (REF) | payer OTHER, SELFPAY ==
--- OUTSIDE RECORDS SUMMARY | 2025-06-12 14:00 | XMS_ITS | Clinical Summary ---
Author Organization [facility] Address [address] [address] Phone Care Team Providers Care Coagulating Drying Supervisor Name Role Phone Berry Wooten MD Primary Care Provider [phone] Allergies No known active allergies Medications No [...] file Medical Devices Not on file Insurance [facility] ACO [facility] ACO [facility] ACO [facility] [employer] ACO [facility] ACO Care Teams Coagulating Drying Supervisor Relationship Specialty Start Date End Date Berry Wooten MD [address] [place] [address] PCP - General 08/25/17 Additional Source Comments The information contained in this document represents components of the legal health record. It is not the complete legal health record.[facility]
[2025-06-13 06:58] LABS: Hepatitis B Surface Ab Qnt 184 mIU/mL (> OR = 10)
== END 2025-06-12 13:49 | disposition home or self-care (01) ==
LOC: HO.LAB 13:48
DX: Z00.00 Encounter for general adult medical examination without abnormal findings (principal)
CPT/HCPCS: 36415; 86317

== ENCOUNTER → 2025-06-12 15:31 | Outpatient (BNVA) | payer SELFPAY | DX: Z23 Encounter for immunization (principal) ==

== ENCOUNTER 2025-09-05 13:50 | Outpatient (AMB) | payer OTHER, SELFPAY ==
--- NOTE | 2025-09-05 14:24 | MHC.OFFVIS ---
Intake Visit Reasons: MS Allergies lorazepam (From ATIVAN) Allergy (Intermediate, Verified 06/08/25 11:17) hives, itchy gabapentin Adverse Reaction (Intermediate, Verified 06/08/25 11:17) feels weird quetiapine (From SEROQUEL) Adverse Reaction (Intermediate, Verified 06/08/25 11:17) RESTLESS LEGS trazodone Adverse Reaction (Intermediate, Verified 06/08/25 11:17) restless leg syndrome HPI Comments Details: 40 yr woman , last seen 4 yrs ago for MS vs CADASIL is here for reevaluation. ?Complains of memory problem and extreme fatigue. Left facial twitching especially left eye. Hard to focus. Chronic neck pain for years. No signs of myelopathy. MRI shows cord compression at C4-5 and C5-6. She had a brief episode of left face and body numbness for about a minute in 2021 and nothing since. She sleeps excessively . Just graduated from [employer]. She is otherwise asymptomatic. No headache recurrence in a couple of years. Vision is not as good at night but is otherwise fine. She has had poor memory all of her life, slightly worse lately. Her mother passed in July with CADASIL or MS. [facility], [facility] Medical History Irritable bowel syndrome with constipation Hepatitis C antibody positive in blood Biliary colic Bipolar disorder Insomnia Polysubstance abuse Brain lesion Cervical nerve root impingement Tobacco abuse Surgical History Hx laparoscopic cholecystectomy Avascular necrosis of bone of left hip Family History Father COPD (chronic obstructive pulmonary disease) Mother Asthma Multiple sclerosis Dementia Other Mental health disorder Substance use disorder Social History Housing: Apartment Alcohol intake: current Alcohol intake frequency: holidays/special occasions only Comment: previously medicated with ketorolac and dilaudid Patient Tobacco Use Status: Current someday Tobacco user Tobacco use type: Cigarette Years Smoked: Restarted 04/2025 e-Cigarette/Vaping Use: Never Used Second Hand Smoke Exposure: Yes Substance Use Type: Marijuana service: No Current occupational status: employed Cognitive needs: No Hearing needs: No Vision needs: No Female Reproductive History Menstrual Age of Menarche: 12 Review of Systems Const Details: Sleep:? Difficulty getting to sleep?denies.? Difficulty maintaining sleep?admits.? Urge to move legs?denies.? Teeth grinding?denies.? Shouting or Kicking during sleep?denies.? Abnormal behavior during sleep?denies.? Excessive sleep?denies.? Snoring?denies.? Daytime sleepiness?denies.? ?? General/Constitutional:? Change in appetite?denies.? Chills?denies.? Fatigue?denies.? Fever?denies.? Weight gain?denies.? Weight loss?denies.? ?? Ophthalmologic:? Blurred vision?denies.? Diminished visual acuity?denies.? ?? ENT:? Stuffiness?denies.? Decreased hearing?denies.? Dry mouth?denies.? Ear pain?denies.? Nosebleed?denies.? Ringing in the ears?denies.? Sinus pain?denies.? Sore throat?denies.? Swollen glands?denies.? ?? Endocrine:? Cold intolerance?denies.? Excessive thirst?denies.? Frequent urination?denies.? Heat intolerance?denies.? ?? Respiratory:? Shortness of breath?denies.? Chest pain?denies.? Cough?denies.? ?? Breast:? Breast lump?denies.? Nipple discharge?denies.? ?? Cardiovascular:? Chest pain at rest?denies.? Chest pain with exertion?denies.? Claudication?denies.? Dizziness?denies.? Fluid accumulation in the legs?denies.? Irregular heartbeat?denies.? Palpitations?denies.? ?? Gastrointestinal:? Abdominal pain?denies.? Constipation?denies.? Diarrhea?denies.? Difficulty swallowing?denies.? Heartburn?denies.? Nausea?denies.? Rectal bleeding?denies.? ?? Hematology:? Easy bruising?denies.? Prolonged bleeding?denies.? ?? Genitourinary:? Frequent urination?denies.? Urgency?denies.? Incontinence?denies.? Erectile Dysfunction?denies.? ?? Musculoskeletal:? Neck pain?denies.? Back pain?admits.? Muscle aches?denies.? Painful joints?denies.? Sciatica?denies.? Weakness?denies.? ?? Podiatric:? Difficulty walking?denies.? Foot numbness?denies.? ?? Neurologic:? Difficulty swallowing?denies.? Balance difficulty?denies.? Coordination?normal.? Difficulty speaking?denies.? Dizziness?denies.? Fainting?denies.? Gait abnormality?denies.? Headache?denies.? Loss of strength?denies.? Loss of use of extremity?denies.? Low back pain?denies.? Memory loss?admits.? Seizures?denies.? Tics?Left facial twitching.? Tingling/Numbness?One episode of left-sided numbness for 1 min..? Transient loss of vision?denies.? Tremor?denies.? ?? Psychiatric:? Anxiety?admits.? Auditory/visual hallucinations?denies.? Delusions?denies.? Depressed mood?denies.? Stressors?admits.? Substance abuse?denies.? Suicidal thoughts?denies.? ? Physical Exam Neuro Other: Neurological: ? 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 Mental Status:?alert and oriented X 3,?Normal attention, orientation, memory and affect.? Cranial Nerves:?Pupils are equal, round and reactive to light. Fundoscopy shows normal disc bilaterally. External occular muscles are intact. Visual hooker are full, no ptosis. Face is symmetrical, no facial weakness or droop. Facial sensations are normal. Tongue protrudes in midline. Palate elevates symmetrically. Shoulder shrugging is normal..? Motor Examination:?Normal muscle tone, bulk and strength,?No atrophy or fasciculations,?No drift of the extended upper extremities,?Deep tendon reflexes are 2+?,?Plantars are flexor?.? Straight Leg Raising:?90 degrees.? Sensory Exam:?Normal light touch, temperature, pinprick, vibration and joint-position sensations?,?Rhomberg sign is absent.? Coordination:?no ataxia,?no titubation,?tpbgka-[id number], jfzi-[id number]-ansf test and rapid alternating movements were normal.? Gait Exam:?Within normal limits.? Cerebellar Signs:?Lnqymq-[id number]-[id number] and dgqc-rq-[id number] is normal,?no dysdiadochokinesia?.? Extrapyramidal System:?No tremor, rigidity with normal facial expressions,?No bradykinesia, no bradyphrenia. Normal arm swing and posture. No propulsion or retropulsion.? Speech:?Normal,?no dysphasia or dysarthria..? Mini Mental Status Exam: ? Level of Consciousness:?Alert.? Orientation:?Knows correct year, month, date, day and season,?Knows correct city, county and state. Knows correct location and floor.? Registration:?Able to register 3 objects.? Attention:?Serial 7's performed accurately.? Recall:?Able to recall 3 out of 3 objects.? Language:?Normal spontaneous speech, fluency, repetition,naming, comprehension, reading and writing.? Total Score ?30/30.? General Examination: ? GENERAL APPEARANCE:?normal,?in no acute distress.? HEAD:?normocephalic,?atraumatic.? EYES:?sclera non-icteric,?conjunctiva clear.? EARS:?auditory canal clear,?tympanic membrane intact, clear.? NOSE:?no lesions.? ORAL CAVITY:?gums normal,?mucosa moist,?no lesions.? THROAT:?clear.? NECK/THYROID:?no cervical lymphadenopathy,?thyroid normal,?neck supple, full range of motion,?no carotid bruit.? SKIN:?no rashes,?no significant birthmarks.? HEART:?S1, S2 normal,?no murmurs.? LUNGS:?clear anteriorly and posteriorly.? CHEST:?no gross rib deformity,?clear to auscultation.? BACK:?normal exam of spine.? EXTREMITIES:?no edema.? PERIPHERAL PULSES:?normal.? PSYCH:?alert, oriented,?cognitive function intact,?cooperative with exam.? Assessment & Plan Assessment & Plan (1) Multiple sclerosis: Comment: Brain MRI showed extensive white matter disease but not periventricular disease, Castanon's fingers deep white matter and subcortical white matter lesions and larger areas of confluent white matter abnormality in the temporal poles. These findings are most consistent with multiple sclerosis vs CADASIL> No black holes were seen. MRI cervical cord compression at C4-5 and C5-6. 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 Trial of Gabapentin. 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
--- OUTSIDE RECORDS SUMMARY | 2025-09-05 18:05 | XMS_ITS | Clinical Summary ---
Author Organization [facility] Address [address] [address] Phone Care Team Providers Care Linux Network Administrator Name Role Phone Berry Wooten MD Primary Care Provider [phone] Allergies No known active allergies Medications No [...] file Medical Devices Not on file Insurance [facility] [employer] Care Teams Linux Network Administrator Relationship Specialty Start Date End Date Berry Wooten MD [address] [place] [address] PCP - General 08/25/17 Additional Source Comments The information contained in this document represents components of the legal health record. It is not the complete legal health record.[facility]
== END 2025-09-05 14:49 | disposition home or self-care (01) ==
LOC: HO.HSM 13:51
PROVIDERS: PCP Internal Medicine; Visit Provider Psychiatry & Neurology Neurology
DX: G35.D Multiple sclerosis, unspecified (principal); G51.39 Clonic hemifacial spasm, unspecified; I67.850 Cerebral autosomal dominant arteriopathy with subcortical infarcts and leukoencephalopathy; M47.12 Other spondylosis with myelopathy, cervical region
CPT/HCPCS: 99204

== ENCOUNTER → 2025-09-05 13:50 | Outpatient (BNVA) | payer OTHER, SELFPAY | PROVIDERS: PCP Internal Medicine; Visit Provider Psychiatry & Neurology Neurology | DX: G35.D Multiple sclerosis, unspecified (principal); G51.39 Clonic hemifacial spasm, unspecified; M47.12 Other spondylosis with myelopathy, cervical region; I67.850 Cerebral autosomal dominant arteriopathy with subcortical infarcts and leukoencephalopathy | CPT/HCPCS: 99202 ==